=== PATIENT | female | born 1980 | race Caucasian/White ===

== ENCOUNTER → 2020-09-09 10:47 | Outpatient (CLI) | payer OTHER, SELFPAY ==
--- NOTE | ~2020-09-09 | XR_ITS ---
EXAMINATION: XR shoulder RT min 2V DATE: 09/09/2020 11:24 INDICATION: Right arm tingling and numbness. TECHNIQUE: 4 views of right shoulder were obtained. COMPARISON: None. FINDINGS: Bone alignment is normal. No fracture. There is mild osteoarthritis of glenohumeral joint a nd acromioclavicular joint. IMPRESSION: 1. Mild polyarticular osteoarthritis. Reviewed, dictated and finalized at location B. UTILITY OPERATOR
--- NOTE | ~2020-09-09 | XR_ITS ---
EXAMINATION: XR cervical spine 4-5V EXAM DATE: 09/09/2020 11:24 INDICATION: fall 3 weeks ago pain and rt fingers numbness. TECHNIQUE: Cervical spine frontal, lateral, lateral swimmers, and open-mouth odontoid projections. There is no prior study for comparison. FINDINGS: Mild cervical spondylosis. There is no evidence of acute cervical fracture. The odontoid process is intact. Pre-dens space is normal. Prevertebral soft tissue is normal. There are no soft tissue abnormalities identified. The vertebral bodies are aligned. Vertebral body and disc heigh ts are well-maintained. IMPRESSION: No acute cervical findings. Mild cervical spondylosis. Reviewed, dictated and finalized at location A. IT ADMINISTRATION OFFICER
== END ==
PROVIDERS: PCP Physician Assistant; Visit Provider Physician Assistant
DX: M47.892 Other spondylosis, cervical region (principal); M19.011 Primary osteoarthritis, right shoulder
CPT/HCPCS: 72050; 73030

== ENCOUNTER 2022-05-21 19:29 | Emergency (ER) | payer OTHER, SELFPAY ==
--- NOTE | ~2022-05-21 | XR_ITS ---
EXAMINATION: XR knee LT min 4V DATE: 05/21/2022 20:12 INDICATION: Left knee swelling TECHNIQUE: Anteroposterior, 2 oblique and crosstable lateral views of the left knee were obtained COMPARISON: None. FINDINGS: Alignment is normal. No fracture. Joint spaces appear normal on nonweightbearing imaging. Moderate s ized left knee joint effusion without layering lipohemarthrosis. Soft tissues are unremarkable. IMPRESSION: 1. Moderate-sized left knee joint effusion. No osseous abnormality. Reviewed, dictated and finalized at location A.
[2022-05-21 19:38] VITALS: BP 154/87; PULSE 105; RESP 18; TEMP 36.6; O2SAT 100
--- NOTE | 2022-05-21 20:13 | ED.LOWEXIN ---
HPI - Extremity Injury (Lower) General Chief Complaint: Extremity Injury, Lower Stated Complaint: L KNEE SWELLING Time Seen by Provider: 05/21/22 20:06 History of Present Illness HPI Narrative: Patient is a 42-year-old female with history of MCL tear here for evaluation of left-sided knee pain for the past month. Patient states that she was pushed over by her large dog about a month ago, and ended directly on the knee but possibly also had a twisting injury. Since then, she has had intermittent knee soreness and swelling at the area. She has been walking and has range of motion in her knee but she states it is painful. She does have a history of an MCL sprain, for which she saw an orthopedist in [place] but she has since moved. States this feels similar to that type of pain. She has been attempting ibuprofen and Tylenol for pain without relief. She denies any numbness or tingling in her leg, lower leg swelling, systemic symptoms. Related Data Allergies Allergy/AdvReac Type Severity Reaction Status Date / Time gentamicin Allergy Unknown Swelling Verified 05/21/22 19:36 levofloxacin Allergy Unknown Swelling Verified 05/21/22 19:36 sulfamethoxazole Allergy Unknown Swelling Verified 05/21/22 19:36 trimethoprim Allergy Unknown Swelling Verified 05/21/22 19:36 Review of Systems Review of Systems: Gen: Denies fevers or chills Eyes: Denies eye pain or visual change ENT: Denies congestion Respiratory: Denies shortness of breath or cough CV: Denies chest pain or palpitations GI: Denies abdominal pain nausea, emesis or diarrhea denies burning, urgency, frequency or hematuria Musculoskeletal: Reports left knee pain. Neuro: Denies numbness, tingling, weakness or focal weakness Skin: Denies rash Except as documented, all other systems reviewed and negative Exam Narrative: APPEARANCE: Well appearing, no pain in distress, well-nourished. Head: Normocephalic and atraumatic. EYES: PERRLA/EOMI, conjunctivae clear NOSE: No nasal drainage EARS: External ear normal in appearance THROAT: Oropharynx is clear. Mucous membranes are moist. NECK: Supple. No adenopathy, no masses. RESPIRATORY: Airway patent, respirations nonlabored. Clear to auscultation bilaterally, no rales, rhonchi, wheezing. CARDIOVASCULAR: 2+ DP PT pulses bilaterally. Regular rate and rhythm without murmurs, rubs, or gallops. ABDOMINAL: Normoactive bowel sounds. Soft, nontender, nondistended. No rebound tenderness or guarding. MUSCULOSKELETAL: Tender to palpation along left superior joint line of patella. Negative anterior and posterior drawer test. Slight laxity noted with valgus stress of knee. No laxity with varus stress. Mckenzie sign negative. No edema. NEURO: Normal speech. No focal neurologic deficits. SKIN: No erythema of the legs. Skin is warm and dry. No rashes. PSYCHIATRIC: Normal affect/mood. Course Vital Signs Vital signs: Vital Signs Temperature 97.8 F 05/21/22 19:38 Pulse Rate 105 H 05/21/22 19:38 Respiratory Rate 18 05/21/22 19:38 Blood Pressure 154/87 H 05/21/22 19:38 Pulse Oximetry 100 05/21/22 19:38 Oxygen Delivery Room Air 05/21/22 19:38 Temperature 97.8 F 05/21/22 19:38 Pulse Rate 92 05/21/22 21:25 Respiratory Rate 16 05/21/22 21:25 Blood Pressure 154/87 H 05/21/22 19:38 Pulse Oximetry 98 05/21/22 21:25 Oxygen Delivery Room Air 05/21/22 19:38 MDM - Extremity Injury (Lower) MDM Narrative Medical decision making narrative: 42-year-old female here for evaluation of left knee pain after a fall 1 month ago that has been intermittent but progressing in severity. Here she is nontoxic-appearing and her vital signs are normal. She does have a history of an MCL tear and does have some laxity noted with valgus stress. X-ray with small joint effusion; doubt septic arthritis as patient has been weightbearing, has no systemic symptoms. Given traumatic nature of pain and that she is wells low risk, doubt DVT. She wa
[2022-05-21] MEDS: LIDOCAINE 5% PATCH 1 PATCH TRANSDERM (20:56)
[2022-05-21 21:25] VITALS: PULSE 92; RESP 16; O2SAT 98
== END 2022-05-21 21:26 | disposition home or self-care (01) ==
PROVIDERS: Emergency Provider Emergency Medicine; PCP Physician Assistant
DX: M25.562 Pain in left knee (principal)
CPT/HCPCS: 73564; 99283; A9270

== ENCOUNTER 2023-02-16 17:37 | Emergency (ER) | payer OTHER, SELFPAY ==
--- NOTE | ~2023-02-16 | XR_ITS ---
EXAMINATION: XR chest 2V Exam Date/Time: 02/16/2023 18:05 CDT HISTORY: vic ant post rib pain s/p carrying a door Comparison: 05/17/2009. RESULT: Lines, tubes, and devices: None. Lungs and pleura: Clear. Cardiomediastinal silhouette: Stable. Other: No acute osseous or upper abdominal finding. IMPRESSION: No acute cardiopulmonary process. Reviewed, dictated and finalized at location K.
[2023-02-16 17:47] VITALS: BP 145/100; PULSE 94; RESP 16; TEMP 36.9; O2SAT 98
[2023-02-16 17:49] VITALS: BP 145/100; PULSE 94; RESP 16; TEMP 36.9; O2SAT 98
--- NOTE | 2023-02-16 18:03 | ED.BACK ---
HPI - Back Pain/Injury General Chief Complaint: Back Pain/Injury Stated Complaint: Back/Front Pain Time Seen by Provider: 02/16/23 18:03 Source: patient, RN notes reviewed and old records reviewed Mode of arrival: ambulatory Limitations: no limitations History of Present Illness HPI Narrative: 42 year old female who presents to [facility] with complaints of carrying glass shower doors from back of her truck and tripped over landscaping and hit her ribs with doors on Wednesday. Patient reports that she didn't fall or break glass doors but continues to have pain to anterior rib area and left posterior rib area aggravated by certain movement. Patient has no redness or bruising along her rib area, denies any shortness of breath.Patient reports that she has taken Ibuprofen and tramadol for her discomfort. MD elicited complaint: other (contusion to ribs) Onset (ago): day(s) (2) Exacerbating factors: movement Treatments prior to arrival: NSAIDS and other (Tramadol) Work related injury: No Related Data Home Medications Medication Instructions Recorded Confirmed Protonix 02/16/23 02/16/23 albuterol sulfate 90 mcg/actuation inhalation 02/16/23 aerosol inhaler ergocalciferol (vitamin D2) 1,250 02/16/23 mcg (50,000 unit) capsule ondansetron 4 mg disintegrating mg 02/16/23 tablet sumatriptan succinate 25 mg tablet mg PO 02/16/23 tramadol 02/16/23 Allergies Allergy/AdvReac Type Severity Reaction Status Date / Time gentamicin Allergy Unknown Swelling Verified 02/16/23 17:48 levofloxacin Allergy Unknown Swelling Verified 02/16/23 17:48 sulfamethoxazole Allergy Unknown Swelling Verified 02/16/23 17:48 trimethoprim Allergy Unknown Swelling Verified 02/16/23 17:48 Review of Systems Review of Systems: CONSTITUTIONAL: Denies fever, chills, or sweats. EYES: Denies visual changes, redness, or discharge. ENT: Denies rhinorrhea, congestion, sore throat, or otalgia. CARDIOVASCULAR: Reports pain along the anterior ribs bilaterally and the left posterior rib area, no palpitations, or edema.denies any dyspnea RESPIRATORY: Denies cough or dyspnea. GASTROINTESTINAL: Denies abdominal pain, nausea, vomiting, or diarrhea. GENITOURINARY: Denies dysuria or hematuria. SKIN: Denies rash or itching.no bruising or swelling or redness of skin MUSCULOSKELETAL: Denies back pain, joint pain, or myalgia. NEUROLOGIC: Denies headache, numbness, or weakness. PSYCHIATRIC: Denies anxiety or depression. All systems reviewed & are unremarkable except as noted in HPI and below PMFSH Past Medical History Medical History (Updated 02/17/23 @ 00:00 by Delia Trent) Asthma Closed left arm fracture ORIF Migraine Surgical History Surgical History (Updated 02/16/23 @ 18:44 by Cinthia Cespedes NP) H/O tubal ligation S/P endometrial ablation Social History Social History (Updated 02/16/23 @ 18:41 by Cinthia Cespedes NP) Smoking status: Current every day smoker Tobacco type: cigarettes Gender identity (if verbalized by the patient): Female Comments At time of signature, agree with nursing past medical, surgical, social and family history. There is no relevant family history pertinent to the presenting complaint Exam Narrative: GENERAL: Well-appearing, well-nourished, and in no acute distress. HEAD: Normocephalic, atraumatic. EYES: PERRLA and EOMI. ENT: Nares clear, no rhinorrhea or epistaxis. Mucous membranes moist.TM's normal, throat pink with no swelling NECK: Supple.no lymphadenopathy CHEST: Clear to auscultation. No respiratory distress.SAO2 98% on room air, some increased discomfort to anterior ribs and left posterior rib areas with movement.denies any dyspnea HEART: Regular rate and rhythm. No murmur heard. Normal peripheral pulses. ABDOMEN: Soft, nontender, nondistended, normal active bowel sounds. EXTREMITIES: Normal range of motion. No edema. SKIN: Warm, dry, no rash. NEURO: No focal deficits. Alert and oriented x3.
[2023-02-16 19:04] VITALS: BP 133/91
== END 2023-02-16 19:04 | disposition home or self-care (01) ==
PROVIDERS: Emergency Provider Registered Nurse; PCP Physician Assistant
DX: S20.213A Contusion of bilateral front wall of thorax, initial encounter (principal); W22.8XXA Striking against or struck by other objects, initial encounter; J45.909 Unspecified asthma, uncomplicated; F17.210 Nicotine dependence, cigarettes, uncomplicated
CPT/HCPCS: 71046; 99213; G0463

== ENCOUNTER 2023-07-16 09:10 | Emergency (ER) | payer OTHER, SELFPAY ==
--- NOTE | 2023-07-16 09:12 | ED.URI ---
HPI - URI/Sore Throat General Chief Complaint: Upper Respiratory Infection Stated Complaint: sinus infection Time Seen by Provider: 07/16/23 09:11 Source: patient Mode of arrival: ambulatory Limitations: no limitations History of Present Illness HPI Narrative: Rishi is a 3-year-old female patient presenting to the clinic today with complaints a possible sinus infection. She reports symptoms have been going on for 2 days. Has sinus congestion, sinus pain, pressure, bilateral ear pain, cough, and postnasal drip. She denies any sore throat, fever, or chills. Did at home COVID test and it was negative. States that she is pretty sure she has a sinus infection. MD elicited complaint: nasal congestion and sinus pain Related Data Home Medications Medication Instructions Recorded Confirmed albuterol sulfate 90 mcg/actuation 2 inh inhalation DIRECTED 02/16/23 07/16/23 aerosol inhaler ergocalciferol (vitamin D2) 1,250 1,250 mcg PO DIRECTED 02/16/23 07/16/23 mcg (50,000 unit) capsule sumatriptan succinate 25 mg tablet 25 mg PO DIRECTED 02/16/23 07/16/23 epinephrine 0.3 mg/0.3 mL 0.3 ml IM DIRECTED 07/16/23 07/16/23 injection, auto-injector (Auvi-Q) Allergies Allergy/AdvReac Type Severity Reaction Status Date / Time gentamicin Allergy Unknown Swelling Verified 07/16/23 09:22 levofloxacin Allergy Unknown Swelling Verified 07/16/23 09:22 sulfamethoxazole Allergy Unknown Swelling Verified 07/16/23 09:22 trimethoprim Allergy Unknown Swelling Verified 07/16/23 09:22 Review of Systems Review of Systems: Pertinent positives per HPI. Patient denies any fever, chills, rash, visual changes, dizziness, shortness of breath, chest pain, palpitations, nausea, vomiting, diarrhea, constipation, abdominal pain, or any urinary issues. [facility] Past Medical History Medical History Asthma Closed left arm fracture ORIF Migraine Surgical History Surgical History H/O tubal ligation S/P endometrial ablation Social History Social History (Reviewed 07/16/23 @ 09:12 by ROXANA Martin Smoking status: Current every day smoker Tobacco type: cigarettes Gender identity (if verbalized by the patient): Female Comments At the time of my signature, I reviewed and agree with the nursing past medical, surgical, social, and family history. There is no relevant family history pertinent to the patient complaint. Exam Narrative: General: Well-developed, well nourished, in no apparent distress Head: Normocephalic, atraumatic Eyes: Pupils equally round and reactive to light bilaterally, EOM intact, sclera and conjunctive clear, no discharge, lids normal Ears: TMs intact and clear, ear canals clear, no drainage, grossly hearing normal. Nose: Nares patent, clear nasal discharge, moderate inflammation, maxillary sinus tenderness. Mouth: Oral pharynx without lesions or masses, good dentition, MMM. Postnasal drip Neck: Supple, trachea midline, no enlargement of anterior or posterior cervical nodes, no thyroid masses or goiter palpable. Cardio: Regular rate and rhythm, s1 and s2 normal, no murmur appreciated. Resp: Clear to auscultation bilaterally, no rhonchi, rales, wheezing or rubs Course Course Emergency Course: Portions of this record may have been created with voice recognition software. Level of Care: Express Care Visit Vital Signs Vital signs: Vital signs reviewed MDM - URI/Sore Throat MDM Narrative Medical decision making narrative: At the time of visit patient is resting comfortably on exam table. Influenza testing was completed and patient was positive for influenza A. Return precautions were reviewed. Patient is nontoxic appearing. Supportive measures were discussed with the patient she voiced understanding the discharge instructions and agrees to treatment plan. Differ
[2023-07-16 09:21] VITALS: BP 137/86; PULSE 108; RESP 16; TEMP 37.6; O2SAT 96
== END 2023-07-16 09:50 | disposition home or self-care (01) ==
PROVIDERS: Emergency Provider Nurse Practitioner Family; PCP Physician Assistant
DX: J10.1 Influenza due to other identified influenza virus with other respiratory manifestations (principal); J45.909 Unspecified asthma, uncomplicated; F17.210 Nicotine dependence, cigarettes, uncomplicated
CPT/HCPCS: 87804; 99213; G0463

== ENCOUNTER 2023-12-31 15:26 | Emergency (ER) | payer OTHER, SELFPAY ==
--- NOTE | 2023-12-31 15:29 | ED.URI ---
HPI - URI/Sore Throat General Chief Complaint: Upper Respiratory Infection Stated Complaint: throat sore strep exposure Time Seen by Provider: 12/31/23 15:41 Source: patient and RN notes reviewed Mode of arrival: ambulatory Limitations: no limitations History of Present Illness HPI Narrative: 43-year-old female presents with concern for sore throat and swollen tonsils. Reports symptoms started today. She reports her co-worker had strep throat. She denies fever, body aches, chills, sweats, headache, cough, nasal congestion rhinorrhea. She has not taken any [id number] medications for her symptoms MD elicited complaint: sore throat Related Data Home Medications Medication Instructions Recorded Confirmed epinephrine 0.3 mg/0.3 mL 0.3 ml IM DIRECTED 07/16/23 12/31/23 injection, auto-injector (Auvi-Q) albuterol sulfate 90 mcg/actuation 2 puff inhalation QID 12/31/23 12/31/23 aerosol inhaler ergocalciferol (vitamin D2) 1,250 50,000 mcg PO WEEKLY 12/31/23 12/31/23 mcg (50,000 unit) capsule fluconazole 150 mg tablet 150 mg PO DAILY 12/31/23 12/31/23 lorazepam 2 mg tablet 2 mg PO TID 12/31/23 12/31/23 nitrofurantoin 100 mg PO DAILY 12/31/23 12/31/23 monohydrate/macrocrystals 100 mg capsule sumatriptan succinate 25 mg tablet 25 mg PO DAILY 12/31/23 12/31/23 tramadol 50 mg tablet 50 mg PO DAILY 12/31/23 12/31/23 Allergies Allergy/AdvReac Type Severity Reaction Status Date / Time gentamicin Allergy Unknown Swelling Verified 12/31/23 15:28 levofloxacin Allergy Unknown Swelling Verified 12/31/23 15:28 sulfamethoxazole Allergy Unknown Swelling Verified 12/31/23 15:28 trimethoprim Allergy Unknown Swelling Verified 12/31/23 15:28 Review of Systems Review of Systems: CONSTITUTIONAL: Denies malaise, chills, sweats, or fever. EYES: Denies visual changes, redness, or discharge. ENT: Denies rhinorrhea, congestion, sinus pain, otalgia. Reports sore throat. CARDIOVASCULAR: Denies chest pain, palpitations, or edema. RESPIRATORY: Denies cough. Denies dyspnea. GASTROINTESTINAL: Denies abdominal pain, nausea, vomiting, diarrhea SKIN: Denies rash or itching. MUSCULOSKELETAL: Denies myalgia. NEUROLOGIC: Denies headache. All systems reviewed & are unremarkable except as noted in HPI and below PMFSH Past Medical History Medical History Asthma Closed left arm fracture ORIF Migraine Surgical History Surgical History H/O tubal ligation S/P endometrial ablation Social History Social History Smoking status: Current every day smoker Tobacco type: cigarettes Gender identity (if verbalized by the patient): Female Comments At time of signature, agree with nursing past medical, surgical, social and family history. There is no relevant family history pertinent to the presenting complaint Exam Narrative: GENERAL: Well-appearing, well-nourished, and in no acute distress. HEAD: Normocephalic EYES: PERRLA, conjunctivae clear ENT: Nares clear, turbinates edematous and erythematous, clear discharge. Mucous membranes moist. TM pearly kumar with sharp light reflex bilaterally; no tragal tenderness. Oropharynx not erythematous without lesions. Left-sided tonsil stones noted. Tonsils not enlarged and without exudate, no drooling, no hoarseness, no trismus, uvula midline. NECK: Supple. No lymphadenopathy CHEST: Clear to auscultation, breath sounds equal. No wheezing, rhonchi, rales, or stridor. No respiratory distress, speaks in full sentences. HEART: Regular rate and rhythm. No murmur heard. SKIN: Warm, dry, no rash. NEURO: Alert and oriented x3. PSYCH: Normal mood and affect Course Course Emergency Course: Patient is aware of diagnosis, understands and agrees to treatment plan. Anticipatory guidance given. Patient agrees to follow-up
[2023-12-31 15:39] VITALS: BP 153/98; PULSE 86; RESP 16; TEMP 36.8; O2SAT 98
== END 2023-12-31 16:00 | disposition home or self-care (01) ==
PROVIDERS: Emergency Provider Nurse Practitioner; PCP Physician Assistant
DX: J02.9 Acute pharyngitis, unspecified (principal); F17.210 Nicotine dependence, cigarettes, uncomplicated; J45.909 Unspecified asthma, uncomplicated
CPT/HCPCS: 87081; 87880; 99213; G0463

== ENCOUNTER 2025-03-23 09:42 | Outpatient (CLI) | payer OTHER, SELFPAY ==
--- NOTE | ~2025-03-23 | CT_ITS ---
CLINICAL INDICATION: Right lower quadrant pain COMPARISON: None. TECHNIQUE: Multiple contiguous axial images of the abdomen and pelvis were performed following the ad ministration of with 100 mL Omnipaque-350 intravenous contrast The dose-length product (DLP) was 1035.84 mGy-cm. Automated exposure control and iterative reconstruction technique were employed. FINDINGS/OBSERVATIONS: Visualized lower thorax: The bilateral lung bases are clear. The heart is of normal size, without pericardial effusion. Small hiatal hernia is present. Liver: The liver demonstrates homogeneous enhancement and is enlarged measuring 20 cm in longitudinal dimens ion. Gallbladder and biliary system: The gallbladder is only minimally distended, and otherwise unremarkable. Pancreas: The pancreas enhances homogeneously without ductal dilatation. Spleen: The spleen enhances homogeneously and is not enlarged. Kidneys: Irregular contrast-enhancing heterogeneous mass along the medial margin of the upper pole of the right kidney measuring 22 x 21 x 22 mm, for which a malignancy is suspected. Trace surrounding inflammatory change in the perirenal fat. Follow-up examination (CT or MRI) with renal mass protocol is recommended for further evaluation. An 11 mm well-circumscribed focus of decreased attenuation is also noted within the upper pole of the right kidney, too small to characterize on the current examination. The remainder of the bilateral kidneys otherwise enhance symmetrically without hydronephrosis or martínez l calculi. Adrenal glands: Unremarkable. Gastrointestinal tract: Rectosigmoid diverticulosis without surrounding inflammatory change. Fecal stasis within the colon. Appendix: The air-filled appendix is of normal caliber (axial series, images 107-120). Vasculature: Unremarkable. Lymph nodes: No pathologically enlarged or morphologically suspicious lymph nodes within the retroperitoneum or at the root of the mesentery. Pelvic structures: The bladder is only minimally distended, and otherwise unremarkable. Sterilization devices detected bilaterally. Involuting 6 mm cyst within the left ovary. Trace free fluid within the pelvis, likely physiologic. Body wall and musculoskeletal: Small fat-containing umbilical hernia. No significant degenerative disease within the lower thoracic or lumbosacral spine. IMPRESSION: 2 cm contrast enhancing mass along the medial margin of the upper pole of the right kidney for which a malignancy is suspected. Repeat examination (CT or MRI) with renal mass protocol is recommended. Hepatomegaly. Normal appendix. Reviewed, dictated and finalized at location A. IMPRESSION: 2 cm contrast enhancing mass along the medial margin of the upper pole of the r ight kidney for which a malignancy is suspected. Repeat examination (CT or MRI) with renal mass protocol is recommended. Hepatomegaly. Normal appendix.
--- OUTSIDE RECORDS SUMMARY | 2025-03-23 09:47 | XMS_ITS | Referral Summary ---
Author Organization [address] Address [address] [place] [id number] Care Team Providers Care Access Control Specialist Name Role Phone Sol Moore Primary Care Provider [phone] Encounters Date Type Department Care Team Description 03/23/[address] [place] [phone] Sol Moore PA Referral Request 03/23/2025 7:30 AM CDT Office Visit [address] [place] [phone] Sol Moore PA BMI 35.0-35.9,adult (Primary Dx); Morbid obesity (HCC); Nausea; Low vitamin B12 level; Immunity status testing; RLQ abdominal pain 03/17/2025 Results Follow-Up [address] [place] [phone] Sol Moore PA CBC with auto differential, Comprehensive metabolic panel, Hemoglobin A1c, Additional followed-up results: 4 12/27/2024 Results Follow-Up [facility] [address] [place] [address] Eboni Lopez NP MRI Breast Bilateral W WO Contrast 12/27/2024 9:30 AM CDT - 12/27/2024 11:59 PM CDT Hospital Encounter [facility] [address] [place] [phone] At high risk for breast cancer Discharge Disposition: Discharge to home or self care 12/26/2024 7:58 AM CDT Anesthesia Event [facility] [address] [place] [id number] Rita Vance MD 12/26/2024 8:00 AM CDT - 12/26/2024 8:30 AM CDT Surgery [facility] [address] [place] [phone] Sylvie Harris MD COLON REMOVAL SNARE 12/26/2024 6:47 AM CDT - 12/26/2024 9:02 AM CDT Hospital Encounter [facility] [address] [place] [phone] Sylvie Harris MD Screen for colon cancer Discharge Disposition: Discharge to home or self care from Last 3 Months Allergies Active Allergy Reactions Criticality Noted Date Comments Bee Venom Protein (Honey Bee) Unknown,Rash Medium 03/2015 Rash Gentamicin Sulfate Unknown 02/02/2019 Levofloxacin Unknown,Rash Medium 11/24/2012 rash Mushroom Hives,Itching,Rash,S wel ling Medium 06/17/2021 Sulfamethoxazole Unknown 02/02/2019 Trimethoprim Unknown 02/02/2019 Medications buPROPion XL (WELLBUTRIN XL) 300 mg 24 hr tablet Take 1 tablet (300 mg total) by mouth every morning 90 tablet 2 022 Active cholecalciferol, vitamin D3, 5,000 unit/mL drops Take by mouth Ac tive cyanocobalamin (Vitamin B-12) 100 mcg tabletIndications :Prevention of Vitamin B12 Deficiency Take 1 tablet (100 mcg total) by mouth daily Active ergocalciferol (VITAMIN D) 50,000 unit capsule Take 1 capsule (50,000 Units total) by mouth once a week 12 capsule 4 023 Active Auvi-Q 0.3 mg/0.3 mL auto-injection syringeIndication s:Anaphylaxis Inject 0.3 mL (0.3 mg total) into the muscle as instructed as needed for anaphylaxis 2 each 4 023 Active SUMAtriptan (IMITREX) 25 mg tablet TAKE 1 TABLET BY MOUTH ONCE NEEDED FOR MIGRAINE-MAY REPEAT IN 2 HOURS IF NO RELIEF.MAX 2/24HOURS. 9 tablet [address] (PROTONIX) 40 mg EC tabletIndications :Gastroesophageal reflux disease without esophagitis Take 1 tablet (40 mg total) by mouth daily 90 tablet 2 025 Active LORazepam (ATIVAN) 2 mg tabletIndications :Anxiety about health Take 1 tablet by mouth at 7 am the day of your MRI. May take another tablet 30 minutes prior to MRI if needed. 2 tablet 025 Active traMADoL (ULTRAM) 50 mg tabletIndications :Neck pain Take 1 tablet (50 mg total) by mouth every 8 (eight) hours as needed for pain (headache) 20 tablet 025 Active albuterol HFA (PROVENTIL HFA,VENTOLIN HFA,PROAIR HFA) 90 mcg/actuation inhaler INHALE 2 PUFFS BY MOUTH EVERY 6 HOURS NEEDED FOR WHEEZING 25.5 each 2 025 Active ondansetron ODT (ZOFRAN-ODT) 4 mg disintegrating tablet TAKE 1 TABLET BY MOUTH EVERY 8 HOURS NEEDED FOR NAUSEA AND VOMITING 30 tablet 025 Active albuterol HFA (PROVENTIL HFA,VENTOLIN HFA,PROAIR HFA) 90 mcg/actuation inhaler INHALE 2 PUFFS BY MOUTH EVERY 6 HOURS NEEDED FOR WHEEZING 25.5 each 2 024 2024 Discontinued ondansetron ODT (ZOFRAN-ODT) 4 mg disintegrating tablet Take 1 tablet (4 mg total) by mouth every 8 (eight) hours as needed for nausea or vomiting 30 tablet 025 2024 Discontinued Active Problems Problem Noted Date Diagnosed Date BMI 35.0-35.9,adult 11/23/2024 Assessment & Plan (03/23/2025 7:39 AM CDT): Discussed the patient's BMI. The BMI is above average. BMI management plan is completed. BMI Follow-up includes: nutrition counseling, exercise counseling and education provided. Assessment & Plan (11/23/2024 7:19 AM CDT): Discussed the patient's BMI. The BMI is above average. BMI management plan is completed. BMI Follow-up includes: nutrition counseling, exercise counseling and education provided. Acute non-recurrent pansinusitis 10/31/2024 Epistaxis 10/31/2024 Abnormal finding on breast imaging 05/29/2024 At high risk for breast cancer 05/29/2024 Assessment & Plan (11/23/2024 2:19 PM CDT): - Follow up with Dr. Carnes, alternating MRI/mammogram every 6 months - MRI on 12/27/2024, mammogram 06/08/2025 - Ativan for anxiety related to upcoming MRI Phlegm in throat 04/04/2024 Assessment & Plan (07/22/2024 3:12 PM DYNAMITE PACKING MACHINE OPERATOR): We reviewed her sinus CT scan which was essentially negative. I do not feel that sinusitis is causing her symptoms. We talked about that and she understood. She is going to decrease her PPIs to once a day. She will follow up with me as needed. Assessment & Plan (06/08/2024 4:46 PM CDT): I think this is also due to her reflux disease and it may improve with more aggressive PPIs therapy. Her hoarseness has already improved. I am also going to have her get a sinus CT scan to rule out sinusitis. I am treating her presumptively for sinusitis as well. She is agreeable with all of this also. Assessment & Plan (04/04/2024 8:28 PM CDT): I reassured her that her throat looks okay. I do not feel that the tonsils are causing all of the phlegm or drainage in her throat. She does have problems with allergies and reflux and I told her that both of these can cause a lot of throat symptoms. We talked about treating more aggressively with PPIs and decided against that given that her symptoms were tolerable. She will follow up with me if her symptoms worsen. She had no questions. Dysuria 03/05/2024 Assessment & Plan (03/05/2024 9:35 PM CDT): This is a significant, separately identifiable problem that was evaluated and managed on the same day as the wellness exam Patient with dysuria symptoms. Dip appears consistent with a UTI. Will start Macrobid 500 mg 1 tablet b.i.d. for 5 days. Await sensitivity from culture to confirm proper treatment. Reviewed wiping Cervical cancer screening 03/05/2024 Assessment & Plan (03/05/2024 9:34 PM CDT): Pap smear obtained. Follow-up pending results. Reviewed Pap smear recommendations for screening. Encounter for routine gyneco logical examination with Papanicolaou smear of cervix 03/05/2024 Assessment & Plan (03/05/2024 9:34 PM CDT): Encouraged healthy lifestyle, good nutrition and exercise. Encouraged Calcium and Vitamin D and weight bearing exercise for bone health. Reviewed immunizations Reviewed age appropirate screenings. Morbid obesity 02/22/2024 Assessment & Plan (03/23/2025 7:39 AM CDT): Discussed the patient's BMI. The BMI is above average. BMI management plan is completed. BMI Follow-up includes: nutrition counseling, exercise counseling and education provided. Assessment & Plan (11/23/2024 7:19 AM CDT): Discussed the patient's BMI. The BMI is above average. BMI management plan is completed. BMI Follow-up includes: nutrition counseling, exercise counseling and education provided. Assessment & Plan (02/22/2024 7:32 AM CDT): Discussed the patient's BMI. The BMI is above average. BMI management plan is completed. BMI Follow-up includes: nutrition counseling, exercise counseling and education provided. Colon cancer screening 11/21/2023 Assessment & Plan (11/23/2024 1:31 PM CDT): - Colonoscopy is scheduled for 12/26/2024 Assessment & Plan (03/05/2024 9:33 PM CDT): Colonoscopy is scheduled for the fall with Dr. Harris. Await recommendations Assessment & Plan (11/21/2023 11:54 PM CDT): Patient due for colon cancer screening. Refer to Dr. Steven Stewart 07/30/2023 Assessment & Plan (07/30/2023 11:56 AM DYNAMITE PACKING MACHINE OPERATOR): Patient notes pain in the right breast. She recently had mammogram with ultrasound in April it showed calcifications that were probably benign and recommended to repeat in 6 months. She does have some caffeine use but in general it is pretty minimal. Multiple members of her family have had breast cancer. With the persistent symptoms will encourage her to start vitamin-E and or evening [place] oil for the pain. Refer to breast specialist for further evaluation. Vitamin D deficiency 12/06/2022 Assessment & Plan (11/23/2024 1:32 PM CDT): - Take your vitamin D supplement Assessment & Plan (11/21/2023 11:53 PM CDT): Supplement Assessment & Plan (12/06/2022 4:44 PM CDT): Supplement Low serum vitamin B12 12/06/2022 Assessment & Plan (11/23/2024 1:32 PM CDT): - Take your B12 supplement Assessment & Plan (11/21/2023 11:53 PM CDT): Supplement Assessment & Plan (12/06/2022 4:44 PM CDT): Supplement Acute pain of left knee 06/01/2022 Positive Neela Test 06/01/2022 Diabetes mellitus screening 11/12/2021 Assessment & Plan (11/23/2024 1:30 PM CDT): - We will measure your hemoglobin A1c. This measures your body's use of glucose and can be used to diagnose diabetes and pre-diabetes. Assessment & Plan (11/12/2021 8:43 AM CDT): Check labs Hair loss 11/12/2021 Assessment & Plan (11/12/2021 8:43 AM CDT): Check labs including B12 vitamin-D thyroid. Encouraged to start a vitamin will continue to monitor pending labs Lipid screening 11/12/2021 Assessment & Plan (11/23/2024 1:27 PM CDT): - Keeping your cholesterol low can help prevent cardiovascular disease - Get plenty of exercise and follow heart-healthy diet Assessment & Plan (11/12/2021 8:43 AM CDT): Check labs Fatigue 11/12/2021 Assessment & Plan (11/12/2021 8:43 AM CDT): Probably multifactorial. Check labs and followup to re-evaluate Hoarseness 11/09/2021 Assessment & Plan (07/22/2024 3:11 PM DYNAMITE PACKING MACHINE OPERATOR): Significantly improved. No for further intervention. Assessment & Plan (06/08/2024 4:45 PM CDT): I reassured her that her vocal cords look okay. There are some findings that are consistent with reflux but no worrisome masses or lesions. We will see how aggressive PPIs management does. Assessment & Plan (11/12/2021 8:37 AM CDT): Improving. Seems to be related to PND. Continue seasonal allergy sxs. Assessment & Plan (11/09/2021 2:42 PM CDT): Start antibiotic,steroid, antihistamine (Claritin OR Zyrtec), Mucinex 12hour and Steroid nasal spray (Flonase). Push fluids. Rest. Supportive care. If sxs worsen or don\'t improve, pt is to followup in the office. History of COVID-19 06/17/2021 Assessment & Plan (06/17/2021 9:51 AM CDT): PatienT COVID positive. Self isolate for 10 days from the onset of sxs. Discussed monoclonal antibody treatments. Reviewed these are under FDA emergency use authorization. Reviewed risks benefits and the infusion process. Patient is o lder, obese and is a smoker so these risk factors help her qualify. She is concerned about how history of allergies. 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 Encouraged her to bring it with her to the infusion. [facility] Treat sxs with Tylenol, Cough/cold medication otc and add VitD 5,000IU daily and Zinc 50mg daily. Monitor sxs and call or go to the ER if has any of the following: --trouble breathing --persistent pain or pressure in the chest --new confusion --inability to wake or stay awake -- bluish lips or face If patient has been in close contact with anyone, they should be notified and instructed to quarantine per CDC guidelines for 14 days after last exposure to the positive COVID patient and monitor closely for symptoms of COVID. If they appear they should be tested. Close contact includes: --You were within 6 feet of someone who has COVID-19 for a total of 15 minutes or more --You provided care at home to someone who is sick with COVID-19 --You had direct physical contact with the person (hugged or kissed them) --You shared eating or drinking utensils --They sneezed, coughed, or somehow got respiratory droplets on you Additional Steps to avoid exposure/spread include: Avoid crowded places where close contact with others may occur, such as shopping centers, movie theaters, dormitories, or stadiums. Avoid transit where close contact with others may occur, such as planes, trains, and buses. Maintain a distance of approximately 6 feet from other people whenever possible (spacing out if you are in a line, leaving 2 seats in between others at a waiting room when possible). Wash your hands with soap and water often. If needed, use a hand filter changer that contains at least 60% alcohol. Clean and disinfect frequently touched surfaces such as tables, doorknobs, countertops, etc daily. Avoid touching your eyes, nose, and mouth when possible. -- Patient is concerned about getting the vaccine. She has to complete the mandate vaccine for her employer before the end of the year. Reviewed with her the recommendations by the CDC is if she receives monoclonal antibody she will need to wait 90 days to get the vaccine series. She would also like to be referred to an weatherization technician to discuss her allergies and the vaccine after she clears quarantine time. She is okay with the weatherization technician in [place]. Will make that referral upon follow-up. Neck pain 09/29/2020 Assessment & Plan (09/29/2020 8:18 PM DYNAMITE PACKING MACHINE OPERATOR): Encouraged NSAIDS (if able to safely tolerate) or Tylenol. Topical preparations like Lidocaine patches, Biofreeze, ICYHOT etc as needed. Mobic to pharm Heat, stretching Avoid long periods of sitting/laying. Encouraged PT. Check xrays. Followup if has any problems controlling bowels or bladder or if sxs worsen. Acute pain of right shoulder 09/29/2020 Seborrheic keratosis 04/11/2020 Assessment & Plan (04/11/2020 1:38 PM CDT): Benign lesions. Suture removed. Continue to keep area clean. Call for any problems. Annual physical exam 02/26/2020 Assessment & Plan (11/23/2024 2:33 PM CDT): - Continue your Wellbutrin XL 300 - Discussed importance of regular health screenings - Vaccinations are up to date - Plan for follow-up in 4 months Assessment & Plan (11/21/2023 11:53 PM CDT): Encouraged healthy lifestyle, good nutrition and exercise. Encouraged Calcium and Vitamin D and weight bearing exercise for bone health. Reviewed immunizations Reviewed age appropirate screenings Assessment & Plan (12/06/2022 4:44 PM CDT): Encouraged healthy lifestyle, good nutrition and exercise. Encouraged Calcium and Vitamin D and weight bearing exercise for bone health. Reviewed immunizations Reviewed age appropirate screenings. Assessment & Plan (11/12/2021 8:37 AM CDT): Encouraged healthy lifestyle, good nutrition and exercise. Encouraged Calcium and Vitamin D and weight bearing exercise for bone health. Reviewed immunizations Reviewed age appropirate screenings. Assessment & Plan (03/03/2020 11:03 PM CDT): Encouraged healthy lifestyle, good nutrition and exercise. Encouraged Calcium and Vitamin D and weight bearing exercise for bone health. Reviewed immunizations Reviewed age appropirate screenings. Breast cancer screening by mammogram 08/21/2019 Assessment & Plan (12/06/2022 4:43 PM CDT): Mammogram order provided Assessment & Plan (11/12/2021 8:35 AM CDT): Mammogram order provided Assessment & Plan (03/03/2020 11:03 PM CDT): Mammogram order provided Assessment & Plan (08/21/2019 10:37 PM DYNAMITE PACKING MACHINE OPERATOR): Mammogram order provided Migraine without aura and wi thout status migrainosus, not intractable 04/09/2019 Assessment & Plan (11/21/2023 11:52 PM CDT): Continue Maxalt and Zofran p.r.n. for nausea Assessment & Plan (12/06/2022 4:42 PM CDT): Stable with Zofran and Maxalt p.r.n. Assessment & Plan (11/12/2021 8:33 AM CDT): Migraines have been stable. Continue Imitrex p.r.n. and Zofran p.r.n.. Assessment & Plan (03/03/2020 11:01 PM CDT): stable Assessment & Plan (08/21/2019 10:36 PM DYNAMITE PACKING MACHINE OPERATOR): Continue to monitor. Start taking all meds, including Wellbutrin, daily as prescribed--will monitor to see if BENNETT resolve. Cigarette smoker 04/09/2019 Assessment & Plan (11/21/2023 11:53 PM CDT): Encouraged smoking cessation. Discussed 3 minutes. Reviewed options for assistance with cessation. Reviewed retirement sequela associated with smoking. Pt declines assistance at this time but may contact the office at anytime for further help as they desire. Assessment & Plan (11/12/2021 8:34 AM CDT): Encouraged smoking cessation. Discussed 3 minutes. Reviewed options for assistance with cessation. Reviewed retirement sequela associated with smoking. Pt declines assistance at this time but may contact the office at anytime for further help as they desire. Assessment & Plan (03/03/2020 11:01 PM CDT): Encouraged smoking cessation. Discussed 3 minutes. Reviewed options for assistance with cessation. Reviewed exterminator helper sequela associated with smoking. Pt declines assistance at this time but may contact the office at anytime for further help as they desire. Assessment & Plan (08/21/2019 10:37 PM DYNAMITE PACKING MACHINE OPERATOR): Encouraged smoking cessation. Discussed 3 minutes. Reviewed options for assistance with cessation. Reviewed exterminator helper sequela associated with smoking. Pt declines assistance at this time but may contact the office at anytime for further help as they desire. Stress 04/09/2019 Assessment & Plan (12/06/2022 4:43 PM CDT): Increased stress caring for her father. She also has increased stress at work due to some lay offs. Will continue with the Wellbutrin XL 300. Patient states she is managing Assessment & Plan (11/12/2021 8:34 AM CDT): Stable with the Wellbutrin. Refills sent to pharmacy Assessment & Plan (03/03/2020 11:02 PM CDT): Continue wellbutrin Assessment & Plan (08/21/2019 10:37 PM DYNAMITE PACKING MACHINE OPERATOR): Take the Wellbutrin daily. Continue to monitor Bee sting allergy 04/09/2019 Assessment & Plan (12/06/2022 4:43 PM CDT): Patient requests refill of epinephrine for her bee sting allergy.. She prefers the brand havoc you because she goes hiking and it is more stable and heat as well as more convenient to sit back pocket as opposed to the pen. Assessment & Plan (11/12/2021 8:34 AM CDT): Patient needs refills of the EpiPen/have a Q as hers is in her purse. She prefers the avg acute product because it is easier to fit her pockets that she has it with her at all times, it has less sensitivity to the heat and is easier to use. Assessment & Plan (03/03/2020 11:02 PM CDT): Does best with Auvi-Q. Insurance covered it last year with [place]. Is important for her to be able to carry it in her pocket, outside in the heat due to bees being her allergy Gastroesophageal reflux disease without esophagi tis 04/09/2019 Assessment & Plan (11/23/2024 10:31 AM CDT): - Continue pantoprazole DR 40 - Start food journal for triggers of nausea Assessment & Plan (11/21/2023 11:52 PM CDT): Continue PPI Assessment & Plan (11/12/2021 8:35 AM CDT): Continue PPI Assessment & Plan (03/03/2020 11:01 PM CDT): Stable with ppi Assessment & Plan (08/21/2019 10:36 PM DYNAMITE PACKING MACHINE OPERATOR): Stable with the PPI Other insect allergy status 03/14/2018 Assessment & Plan (11/12/2021 8:34 AM CDT): Continue with Mucinex antihistamine and Flonase to manage her allergies. Has a ProAir available for a little bit of a reactive airway. Assessment & Plan (03/03/2020 11:03 PM CDT): otc prn Assessment & Plan (08/21/2019 10:37 PM DYNAMITE PACKING MACHINE OPERATOR): Continue otc meds Intractable migraine with aura without status mi grainosus 02/02/2017 Assessment & Plan (11/23/2024 10:31 AM CDT): - Continue sumatriptan 25 mg, ondansetron 4 mg and tramadol 50 mg - Keep food journal to identify triggers for migraines COPD (chronic obstructive pulmonary disease) Chronic rhinosinusitis 10/05/2016 Laryngopharyngeal reflux (LPR) 10/05/2016 Assessment & Plan (07/22/2024 3:10 PM DYNAMITE PACKING MACHINE OPERATOR): She has had significant improvement since we increased her PPIs to twice a day. I think at this point she can probably go down to her original once a day dosage and we talked about that. She can take it twice a day as needed also. She understands. She has no questions. Assessment & Plan (06/08/2024 4:44 PM CDT): We discussed laryngopharyngeal reflux disease. It could be causing these symptoms. It can be improved through dietary management and we talked about various dietary changes to consider. Also discussed aggressive treatment through twice a day proton pump inhibitors. I also provided some literature regarding this type of reflux and this included instructions on dietary management. She has already started to take her pantoprazole twice a day and I recommended that she continue with that. I would like to see her again in about 6 weeks. She understands and has no questions. Chronic laryngitis 09/30/2016 Resolved Problems Problem Noted Date Diagnosed Date Resolved Date Tonsil stone 04/04/2024 11/23/2024 Assessment & Plan (04/04/2024 8:27 PM CDT): I talked with her quite a bit about her tonsil stones. I indicated that there is really not a whole lot that can be done other than a tonsillectomy to get rid of this problem. I recommended it only if she is seriously bothered by this. I discussed the risks of tonsillectomy and adenoidectomy with the patient. There is risk of bleeding which can occur in approximately 2-3% of patients during the 1st 2 weeks of recovery. Some risk of permanent loss of taste sensation. Risk of anesthesia and airway complications also. She is seriously considering a tonsillectomy. She will think it over and call if she has any questions or if she wants to schedule this. BMI 34.0-34.9,adult 02/22/2024 11/24/19 25 Assessment & Plan (02/22/2024 7:31 AM CDT): Discussed the patient's BMI. The BMI is above average. BMI management plan is completed. BMI Follow-up includes: nutrition counseling, exercise counseling and education provided. BMI 35.0-35.9,adult 11/16/2022 02/22/20 24 Assessment & Plan (11/21/2023 11:53 PM CDT): Discussed the patient's BMI. The BMI is above average. BMI management plan is completed. BMI Follow-up includes: nutrition counseling, exercise counseling and education provided. Assessment & Plan (07/26/2023 2:32 PM DYNAMITE PACKING MACHINE OPERATOR): Discussed the patient's BMI. The BMI is above average. BMI management plan is completed. BMI Follow-up includes: nutrition counseling, exercise counseling and education provided. Assessment & Plan (11/16/2022 7:20 AM CDT): BMI Follow-up includes: Discussed diet and exercising counseling. Morbid obesity 11/12/2021 11/23/2024 Assessment & Plan (11/21/2023 11:53 PM CDT): Discussed the patient's BMI. The BMI is above average. BMI management plan is completed. BMI Follow-up includes: nutrition counseling, exercise counseling and education provided. Patient has an obesity-related condition (not limited to: hypertension, obstructive sleep apnea, osteoarthritis, hyperlipidemia, diabetes, etc.). Therefore, morbid obesity may be documented for patients with a BMI between 35.00-39.99. Assessment & Plan (07/30/2023 11:52 AM DYNAMITE PACKING MACHINE OPERATOR): Discussed the patient's BMI. The BMI is above average. BMI management plan is completed. BMI Follow-up includes: nutrition counseling, exercise counseling and education provided. Patient has an obesity-related condition (not limited to: hypertension, obstructive sleep apnea, osteoarthritis, hyperlipidemia, diabetes, etc.). Therefore, morbid obesity may be documented for patients with a BMI between 35.00-39.99. Assessment & Plan (12/06/2022 4:44 PM CDT): Discussed the patient's BMI. The BMI is above average. BMI management plan is completed. BMI Follow-up includes: nutrition counseling, exercise counseling and education provided. Patient has an obesity-related condition (not limited to: hypertension, obstructive sleep apnea, osteoarthritis, hyperlipidemia, diabetes, etc.). Therefore, morbid obesity may be documented for patients with a BMI between 35.00-39.99. Assessment & Plan (11/12/2021 8:07 AM CDT): Obesity is unchanged. Discussed the patient's BMI. The BMI is above average. BMI management plan is completed. BMI Follow-up includes: nutrition counseling, exercise counseling and education provided. BMI 34.0-34.9,adult 11/12/2021 11/17/19 Assessment & Plan (11/12/2021 8:07 AM CDT): Obesity is unchanged. Discussed the patient's BMI. The BMI is above average. BMI management plan is completed. BMI Follow-up includes: nutrition counseling, exercise counseling and education provided. Visit for suture removal 04/11/2020 Assessment & Plan (04/11/2020 1:39 PM CDT): Suture removed. Reviewed pathology with patient. BMI 35.0-35.9,adult 04/02/2020 11/13/19 22 Assessment & Plan (04/02/2020 1:16 PM CDT): Obesity is unchanged. Discussed the patient's BMI. The BMI is above average. BMI management plan is completed. BMI Follow-up includes: nutrition counseling, exercise counseling and education provided. Changing skin lesion 03/03/2020 022 Assessment & Plan (04/06/2020 11:37 PM CDT): Reviewed procedure with patient including process, possible scarring, risk for bleeding and or infection and that the procedure will remove the lesion but if pathology reveals a cancer, a larger more aggressive excision may be needed for definitive treatment. All questions were answered and pt desires to procede. Area was cleansed with Betadine x 3. Area infiltrated with Xylocane with Epi. Under sterile conditions the 6mm lesion was lifted and excised with a #11blade. Hemostasis obtained with silver nitrate. Bandaid applied. Pt tolerated well. Reviewed s/s infection and call immediately for any problems. Await pathology. Patient presents punch biopsy. She has a suspicious lesion that is changing and recommended further evaluation for this skin lesion. Reviewed the procedure with her. Reviewed that it is a procedure that will provide information regarding the lesion but it may not be definitive, further investigation may be required not limited to incision and or Mohs if abnormal cells are determined to be present. Reviewed risks benefits alternatives not limited to infection, bleeding and scarring. All questions were answered and patient desires to proceed. Written consent was obtained from the patient and is available in the chart. Area was cleansed with Betadine x3. Area infiltrated with xylocaine with epinephrine until good anesthesia was obtained. Under sterile conditions have 5mm punch was used per protocol and a nice skin plug was removed from the area. It will be sent for pathology. One stitch for 4-0Vicryl was placed with good approximation. Blood loss was minimal suturing obtained good control. Area was covered with a Band-Aid. She is return to in 1 week for suture removal. Reviewed with signs and symptoms of infection she is to follow up immediately if any of these present. May use ibuprofen or Tylenol as needed for discomfort. Assessment & Plan (03/03/2020 11:06 PM CDT): Recommend punch bx. 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 Reviewed risks/ benefits. Patient refuses and accepts risks. Immunizations Immunization Administration Dates Next Due Influenza, Unspecified 08/23/2024(Deferr ed: Patient Refused),11/16/2022(Deferred: Patient Refused),08/23/2021(Deferred: Patient Refused),05/23/2020,05/23/2020(Deferred: Patient Refused),08/21/2019(Deferred: Patient Refused),05/23/2019,07/23/2018(Deferred: Patient Refused) Tdap 09/01/2018 Social History Tobacco Use Types Packs/Day Years Used Date Smoking Tobacco: Every Day Cigarettes 0.3 25 Smokeless Tobacco: Never Tobacco Cessation:Ready to Q uit: Not Asked; Counseling Given: Not Answered Alcohol Use Standard Drinks/Week Comments Yes 0 (1 standard drink = 0.6 oz pur e alcohol) AUDIT-C Answer Date Recorded Q1: How often do you have a drink containing alcohol? Never 03/23/2025 Q2: How many drinks containi ng alcohol do you have on a typical day when you are drinking? Patient does not drink Q3: How often do you have si x or more drinks on one occasion? Never 03/23/2025 PHQ-2 Answer Date Recorded PHQ-2 Total Score (If total score is 3 or more points, staff should administer the PHQ-9) 0 03/23/2025 Personal Safety Answer Date Recorded Have you ever been in or are you currently in a harmful physical or emotional relationship or is someone making you feel afraid or unsafe? 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 on file Not on file Not on file Last Filed Vital Signs Vital Sign Reading Time Taken Comments Blood Pressure 142/86 03/23/2025 7:35 AM CDT Pulse 83 03/23/2025 7:35 AM CDT Temperature 36.8 C (98.2 F) 03/23/2025 7:35 AM CDT Respiratory Rate 17 12/26/2024 8:50 AM CDT Oxygen Saturation 97% 03/23/2025 7:35 AM CDT Inhaled Oxygen Concentration - - Weight 99.8 kg (220 lb) 03/23/2025 7:35 AM CDT Height 167.6 cm (5' 6) 11/23/2024 7:12 AM CDT Body Mass Index 35.51 11/23/2024 7:12 AM CDT Plan of Treatment Not on file Medical Devices Implanted Type Area Group Home Paraprofessional Device Identifier Shelf Expiration Date Model / Serial / Lot Plate And Screws Left: Arm Silent Edge Mri Guided Rigid Deployment Device Cork Marker Breast [employer] Td 13-Mr - [id number] Implanted:Qty: 1 on 05/31/2024 at [facility] [email or web address] TD 13-MR / / Procedures Procedure Name Priority Date/Time Associated Diagnosis Comments VITAMIN B12 Routine 03/16/2025 12:05 PM CDT Low serum vitamin B12 VITAMIN D 25 HYDROXY Routine 03/16/2025 12:05 PM CDT Vitamin D deficiency TSH Routine 03/16/2025 12:05 PM CDT Fatigue, unspecified type LIPID PANEL Routine 03/16/2025 12:05 PM CDT Lipid screening HEMOGLOBIN A1C Routine 03/16/2025 12:05 PM CDT Diabetes mellitus screening COMPREHENSIVE METABOLIC PANEL Routine 03/16/2025 12:05 PM CDT Lipid screening CBC WITH AUTO DIFFERENTIAL Routine 03/16/2025 12:05 PM CDT Fatigue, unspecified type MRI BREAST BILATERAL W WO CONTRAST Schedule Routine, Read Routine (OP Routine) 12/27/2024 11:00 AM CDT At high risk for breast cancer SURGICAL PATHOLOGY Routine 12/26/2024 10 :11 AM CDT Screen for colon cancer ENDO ADD ON COLON BIOPSY 12/26/2024 7:58 AM CDT Screening COLON REMOVAL SNARE 12/26/2024 7 :58 AM CDT Screening COLONOSCOPY 12/26/2024 7:55 AM CDT DIAGNOSTIC MAMMOGRAM BILATERAL W REI Schedule Routine, Read Routine (OP Routine) 05/26/2024 2:00 PM CDT Abnormal MRI, breast PAP AND HPV, REFLEX TO HPV GENOTYPES Routine 02/22/2024 7:15 AM CDT Cervical cancer screening from Last 3 Months or Most Recently Relevant to Health Maintenance Results * (ABNORMAL) CBC with auto differential (03/16/2025 12:05 PM CDT) WBC 11.7(H) 3.8 - 10.8 Thousand/u L [facility] RBC, POC 4.97 3.80 - 5.10 Million/uL [facility] Hgb 14.4 11.7 - 15.5 g/dL [facility] Hct 45.3(H) 35.0 - 45.0 % [facility] MCV 91.1 80.0 - 100.0 fL [facility] MCH 29.0 27.0 - 33.0 pg [facility] MCHC 31.8(L) 32.0 - 36.0 g/dL [facility] Comment: For adults, a slight decrease in the calculated MCHC value (in the range of 30 to 32 g/dL) is most likely not clinically significant; however, it should be interpreted with caution in correlation with other red cell parameters and the patient's clinical condition. Rdw 12.5 11.0 - 15.0 % [facility] Platelets 336 140 - 400 Thousand/u L [facility] MPV 9.4 7.5 - 12.5 fL [facility] Neutrophils, abs 7,933(H) 1,500 - 7,800 cells/uL [facility] Lymphocytes, abs 2,843 850 - 3,900 cells/uL [facility] Monocyte abs 702 200 - 950 cells/uL [facility] Eosinophils, abs 187 15 - 500 cells/uL [facility] Basophils, abs 35 0 - 200 cells/uL [facility] Neutrophils 67.8 % [facility] Lymphocyte pct 24.3 % [facility] Monocytes 6.0 % [facility] Eosinophils 1.6 % [facility] Basophils 0.3 % [facility] Blood 03/16/2025 12:0 5 PM CDT 03/16/2025 12:05 PM CDT Narrative [facility] - 03/17/2025 5:22 AM CDT FASTING:YES FASTING: YES Sol [facility] LAB BLOOD ORDERABLES Final Result [facility] [address] [place] [address] * (ABNORMAL) Vitamin D 25 hydroxy (03/16/2025 12:05 PM CDT) Vitamin D 25-OH 25(L) 30 - 100 ng/mL [facility] Comment: Vitamin D Status 25-OH Vitamin D: Deficiency: <20 ng/mL Insufficiency: 20 - 29 ng/mL Optimal: > or = 30 ng/mL For 25-OH Vitamin D testing on patients on D2-supplementation and patients for whom quantitation of D2 and D3 fractions is required, the [facility](TM) 25-OH VIT D, (D2,D3), LC/MS/MS is recommended: order code 70062 (patients >2yrs). See Note 1 Note 1 For additional information, please refer to http://education.[employer]/faq/ANG628 (This link is being provided for informational/ educational purposes only.) Blood 03/16/2025 12:0 5 PM CDT 03/16/2025 12:05 PM CDT Narrative [facility] - 03/17/2025 5:22 AM CDT FASTING:YES FASTING: YES Sol RODRIGUES LAB BLOOD ORDERABLES Final Result Performing Organization Address City/[facility] Co de Phone Number [facility] [address] [place] [address] * TSH (03/16/2025 12:05 PM CDT) TSH 1.46 mIU/L [facility] Comment: Reference Range > or = 20 Years 0.40-4.50 Ranges First trimester 0.26-2.66 Second trimester 0.55-2.73 Third trimester 0.43-2.91 Blood 03/16/2025 12:0 5 PM CDT 03/16/2025 12:05 PM CDT Narrative [facility] - 03/17/2025 5:22 AM CDT FASTING:YES FASTING: YES Sol RODRIGUES LAB BLOOD ORDERABLES Final Result Performing Organization Address [facility] de Phone Number [facility] [address] [place] [address] * (ABNORMAL) Hemoglobin A1c (03/16/2025 12:05 PM CDT) Pathologist [facility] Hgb A1C 5.9(H) <5.7 % of total Hgb [facility] Comment: For someone without known diabetes, a hemoglobin A1c value between 5.7% and 6.4% is consistent with prediabetes and should be confirmed with a follow-up test. For someone with known diabetes, a value <7% indicates that their diabetes is well controlled. A1c targets should be individualized based on duration of diabetes, age, comorbid conditions, and other considerations. This assay result is consistent with an increased risk of diabetes. Currently, no consensus exists regarding use of hemoglobin A1c for diagnosis of diabetes for children. Blood 03/16/2025 12:0 5 PM CDT 03/16/2025 12:05 PM CDT Narrative [facility] - 03/17/2025 5:22 AM CDT FASTING:YES FASTING: YES Sol RODRIGUES LAB BLOOD ORDERABLES Final Result Performing Organization Address [facility] Co de Phone Number [facility] [address] [place] [address] * Vitamin B12 (03/16/2025 12:05 PM CDT) [facility] Vitamin B12 204 200 - 1,100 pg/mL [facility] Comment: Please Note: Although the reference range for vitamin B12 is 200-1100 pg/mL, it has been reported that between 5 and 10% of patients with values between 200 and 400 pg/mL may experience neuropsychiatric and hematologic abnormalities due to occult B12 deficiency; less than 1% of patients with values above 400 pg/mL will have symptoms. Blood 03/16/2025 12:0 5 PM CDT 03/16/2025 12:05 PM CDT [facility] - 03/17/2025 5:22 AM CDT FASTING:YES FASTING: YES Sol RODRIGUES LAB BLOOD ORDERABLES Final Result Performing Organization Address [facility] Co de Phone Number [facility] [address] [place] [address] * (ABNORMAL) Lipid panel (03/16/2025 12:05 PM CDT) [facility] Cholesterol 170 <200 mg/dL [facility] HDL 42(L) > OR = 50 mg/dL [facility] Triglycerides 174(H) <150 mg/dL [facility] LDL 101(H) mg/dL (calc) [facility] Comment: Reference range: <100 Desirable range <100 mg/dL for primary prevention; <70 mg/dL for patients with CHD or diabetic patients with > or = 2 CHD risk factors. LDL-C is now calculated using the Adeel-Geoff calculation, which is a validated novel method providing better accuracy than the Friedewald equation in the estimation of LDL-C. Adeel US et al. ERYN. 2013;310(19): 1899-8778 (http://education.relocality/faq/AQL662) Chol/HDL ratio 4.0 <5.0 (calc) [facility] Non-HDL, (LDL+VLDL) 128 <130 mg/dL (calc) [facility] Comment: For patients with diabetes plus 1 major ASCVD risk factor, treating to a non-HDL-C goal of <100 mg/dL (LDL-C of <70 mg/dL) is considered a therapeutic option. Blood 03/16/2025 12:0 5 PM CDT 03/16/2025 12:05 PM CDT Narrative [facility] - 03/17/2025 5:22 AM CDT FASTING:YES FASTING: YES us Sol RODRIGUES LAB BLOOD ORDERABLES Final Result [facility] [address] [place] [address] * Comprehensive metabolic panel (03/16/2025 12:05 PM CDT) Pathologist [facility] Glucose 81 65 - 99 mg/dL [facility] Comment: Fasting reference interval BUN 10 7 - 25 mg/dL [facility] Creatinine 0.67 0.50 - 0.99 mg/dL [facility] eGFR 109 > OR = 60 mL/min/1.7 3m2 [facility] BUN/creat ratio SEE NOTE: (calc) [facility] Comment: Not Reported: BUN and Creatinine are within reference range. Sodium 138 135 - 146 mmol/L [facility] Potassium, pl 4.2 3.5 - 5.3 mmol/L [facility] Chloride 101 98 - 110 mmol/L [facility] CO2 31 20 - 32 mmol/L [facility] Calcium 8.9 8.6 - 10.2 mg/dL [facility] Protein, sr 6.4 6.1 - 8.1 g/dL [facility] Albumin 4.0 3.6 - 5.1 g/dL [facility] GLOBULIN 2.4 1.9 - 3.7 g/dL (calc) [facility] Alb/glob ratio 1.7 1.0 - 2.5 (calc) [facility] Bilirubin, total 0.4 0.2 - 1.2 mg/dL [facility] Alk phos 70 31 - 125 U/L [facility] AST 16 10 - 35 U/L [facility] ALT (SGPT) 15 6 - 29 U/L [facility] Blood 03/16/2025 12:0 5 PM CDT 03/16/2025 12:05 PM CDT Narrative [facility] - 03/17/2025 5:22 AM CDT FASTING:YES FASTING: YES us Sol RODRIGUES LAB BLOOD ORDERABLES Final Result [facility] [address] [place] [address] * MRI Breast Bilateral W WO Contrast (12/27/2024 11:00 AM CDT) Anatomical Region Laterality Modality Breast Bilateral Magnetic Resonan ce 12/27/2024 1:04 PM CDT Impressions 12/27/2024 1:04 PM CDT Moderate background enhancement with no change is identified compared to the prior exam. OVERALL FINAL ASSESSMENT: BI-RADS Category 2: Benign. RECOMMENDATION: Screening mammography. The patient will be due for bilateral screening mammography in May. Electronically signed by: Henrietta Evans M.D. Narrative 12/27/2024 1:04 PM CDT EXAMINATION: 1. MRI EXAMINATION OF THE BREASTS WITH AND WITHOUT CONTRAST 2. 3D POST PROCESSING ON A DEDICATED 3D WORKSTATION HISTORY: 44-year-old woman with family history of breast cancer and prior MR guided benign breast biopsy. TECHNIQUE: MRI examination of the breasts per breast tumor protocol with and without gadolinium contrast. A dedicated breast imaging coil was used. The images were transferred to a breast CAD system for 3D post processing and contrast kinetics analysis. CONTRAST: Gadoterate meglumine, 20 ml COMPARISON: Prior breast imaging studies dating back to 11/18/2023 BREAST COMPOSITION: Heterogeneous fibroglandular tissue BACKGROUND PARENCHYMAL ENHANCEMENT: Moderate FINDINGS: There continues to be diffuse non-mass enhancement bilaterally but more prominent on the right than the left and consistent with background enhancement but unchanged compared to prior exam. There are no new findings. There continue to be scattered tiny cysts. No abnormally enlarged lymph nodes are identified in the visualized portions of either axilla. Procedure Note Henrietta Evans MD - 12/27/2024 EXAMINATION: 1. MRI EXAMINATION OF THE BREASTS WITH AND WITHOUT CONTRAST 2. 3D POST PROCESSING ON A DEDICATED 3D WORKSTATION HISTORY: 44-year-old woman with family history of breast cancer and prior MR guided benign breast biopsy. TECHNIQUE: MRI examination of the breasts per breast tumor protocol with and without gadolinium contrast. A dedicated breast imaging coil was used. The images were transferred to a breast CAD system for 3D post processing and contrast kinetics analysis. CONTRAST: Gadoterate meglumine, 20 ml COMPARISON: Prior breast imaging studies dating back to 11/18/2023 BREAST COMPOSITION: Heterogeneous fibroglandular tissue BACKGROUND PARENCHYMAL ENHANCEMENT: Moderate FINDINGS: There continues to be diffuse non-mass enhancement bilaterally but more prominent on the right than the left and consistent with background enhancement but unchanged compared to prior exam. There are no new findings. There continue to be scattered tiny cysts. No abnormally enlarged lymph nodes are identified in the visualized portions of either axilla. IMPRESSION: Moderate background enhancement with no change is identified compared to the prior exam. OVERALL FINAL ASSESSMENT: BI-RADS Category 2: Benign. RECOMMENDATION: Screening mammography. The patient will be due for bilateral screening mammography in May. Electronically signed by: Henrietta Evans M.D. Eboni Lopez WRAPPER CASER IM MRI PROCEDURES Evon l Result * Surgical pathology (12/26/2024 10:11 AM CDT) Tissue (Colon, Biopsy) 12/26/2024 8:14 AM CDT Tissue specimen (specimen) (Colon, Biopsy) 12/26/2024 8:22 AM CDT Tissue specimen (specimen) (Colon, Biopsy) 12/26/2024 8:24 AM CDT Narrative PATHOLOGY [facility] - 12/27/2024 5:31 PM CDT [facility] Department of Pathology [address] [place] [address] Note to Patients: This report may contain a detailed description of human tissue sent by a health care provider to the laboratory for pathologic evaluation. The content of this report is essential for diagnosis and may provide important critical findings. This information may be unfamiliar to patients to review without a medical professional present. It is advised that the patient review this report in the presence of a health care provider who can answer questions and explain the details. Final Report Patient Name: FLOYD DEJESUS : 1980 (Age: 44) Gender: F Address: [address] [place] [address] [place] [address] Hospital #: [id number] Service: Surgery Location: Patient Type: [facility] OUTPATIENT Taken: 12/26/2024 Received: 12/26/2024 Accessioned: 12/26/2024 Reported: 12/27/2024 Physician(s): Jacob Wagoner PA-C Diagnosis: A. Transverse colon polyps x3, biopsy - One tubular adenoma. - Fragments of sessile serrated lesions/adenoma(s). B. Sigmoid colon polyps x2, biopsy - Hyperplastic polyps. C. Rectal polyps x3, biopsy - Hyperplastic polyps. Efe Mcghee M.D. Report Electronically Reviewed and Signed Out By Efe Mcghee M.D. 12/27/2024 17:31:45 Specimen(s) Received: A: Transverse colon polyp x3 B: Sigmoid colon polyp x 2 C: Rectal polyp biopsy x3 Microscopic Description: Microscopic examination is performed. Microscopic examination is performed. Clinical History: The patient is a 44-year-old woman presenting for colon cancer screening. Operative procedure: Colonoscopy with biopsy. Gross Description Received in three formalin jars labeled with the patient's identifiers. A. Labeled transverse colon polyp x3 and consists of two simental-pink tissue fragments measuring 0.1 cm and 0.4 cm. Also in the specimen container is a 0.8 x 0.7 x 0.6 cm simental-red, polypoid tissue with an identifiable resection margin (inked black and trisected). Entirely submitted. Labeled A1. Jar 0. B. Labeled sigmoid colon polyp x2 and consists of two simental tissue fragments each measuring 0.3 cm. Entirely submitted. Labeled B1. Jar 0. C. Labeled rectal polyp biopsy x3 and consists of three simental-pink tissue fragments ranging from 0.2-0.3 cm. Entirely submitted. Labeled C1. Jar 0. [facility]/12/26/2024 13:34 MIREILLE Moses, PA (ASCP) Microscopic slide review and interpretation for this case was performed at [facility], Department of Surgical Pathology, [address] [facility] [place], [place] [id number], [place] [address] [facility] # [id number] us Sylvie Harris MD LAB PATHOLOGY ORDERABLES Final R esult PATHOLOGY [facility] * Colonoscopy (12/26/2024 7:55 AM CDT) Anatomical Region Laterality Modality Other Narrative Procedure Note Sylvie Harris MD - 12/26/2024 7:55 AM CDT [facility] GI ENDOSCOPY Patient Name: Floyd Dejesus Procedure Date: 12/26/2024 7:55 AM Date of : 1980 Admit Type: Outpatient Age: 44 Gender: Female Attending MD: Sylvie Harris M.D. Room: [facility] ENDOSCOPY ROOM 05 Note Status: Finalized Procedure: Colonoscopy Indications: Screening for colorectal malignant neoplasm Referring MD: Providers: Sylvie Harris M.D. Medicines: See the Anesthesia note for documentation of the administered medications Complications: No immediate complications. Estimated Blood Loss: Estimated blood loss was minimal. Procedure: The benefits, risks and alternatives of theprocedure and sedation were discussed and informed consentwas obtained. All questions were answered. Please referto the signed informed consent document in the medical record. The scope was passed under direct vision.The CF-H180AL colonoscope was introduced through theanus and advanced to the cecum, identified byappendiceal orifice and ileocecal valve. The colonoscopy was performed without difficulty. The patient tolerated the procedure well. The quality of the bowel preparation was adequate. Findings: The perianal and digital rectal examinations were normal. The terminal ileum appeared normal. Two sessile polyps were found in the transverse colon. The polypswere 3 to 8 mm in size. These polyps were removed with a jumbo cold forceps. Resection and retrieval were complete. A 15 mm polyp was found in the transverse colon. The polyp wassessile. The polyp was removed with a hot snare. Resection and retrieval were complete. To prevent bleeding post-intervention, one hemostatic clipwas successfully placed. There was no bleeding during, or at the end, ofthe procedure. Two sessile polyps were found in the sigmoid colon. The polyps were 5mm in size. These polyps were removed with a jumbo cold forceps.Resection and retrieval were complete. Three sessile polyps were found in the rectum. The polyps were 5 mmin size. These polyps were removed with a jumbo cold forceps. Resectionand retrieval were complete. Diverticula were found in the colon. Internal hemorrhoids were found during retroflexion. The hemorrhoids were small. Impression: - The examined portion of the ileum was normal. - Two 3 to 8 mm polyps in the transverse colon, removed with a jumbo cold forceps. Resected and retrieved. - One 15 mm polyp in the transverse colon, removed with a hot snare. Resected and retrieved. Clip was placed. - Two 5 mm polyps in the sigmoid colon, removedwith a jumbo cold forceps. Resected and retrieved. - Three 5 mm polyps in the rectum, removed with a jumbo cold forceps. Resected and retrieved. - Diverticulosis. - Internal hemorrhoids. Recommendation: - Repeat colonoscopy in 2 years for surveillance if adenomatous. - No aspirin, ibuprofen, naproxen, or other non-steroidal anti-inflammatory drugs for 5 days. Sylvie Harris M.D. Sylvie Harris M.D. 12/26/2024 8:30:48 AM . Number of Addenda: 0 Note Initiated On: 12/26/2024 7:55 AM Recognized by the [employer] for promoting quality in endoscopy us Sylvie Harris MD ENDOSCOPY PROCEDURES Final Resul t * Diagnostic Mammogram Bilateral W Rei (05/26/2024 2:00 PM CDT) Anatomical Region Laterality Modality Breast Bilateral Mammography 05/26/2024 3:43 PM CDT Impressions 05/26/2024 3:45 PM CDT 1. No ultrasound or mammographic correlate for the MRI finding in the upper left breast is visualized. Recommend MRI directed biopsy. 2. No mammographic findings of malignancy in either breast. OVERALL FINAL ASSESSMENT: SUSPICIOUS. BI-RADS Category 4B: Moderate suspicion for malignancy. RECOMMENDATION: MRI guided biopsy of the abnormal enhancing foci in the upper left breast, no mammographic or ultrasound correlate is present. MRI biopsy is already scheduled. Dictated by: Anderson Humphrey D.O. The radiology attending physician has personally reviewed this study, and had reviewed and/or edited this written report and agrees with it. Electronically signed by: Jennifer Robledo M.D. Narrative 05/26/2024 3:45 PM CDT EXAMINATION: BILATERAL DIGITAL DIAGNOSTIC MAMMOGRAM INCLUDING CAD AND BILATERAL DIGITAL BREAST TOMOSYNTHESIS; LEFT BREAST SONOGRAM HISTORY: 44-year-old woman presents for 2nd look mammographic and ultrasonographic imaging of the abnormality in the upper left breast found on MRI. COMPARISON: Multiple prior studies, most recently 05/22/2024 and dating back to 12/05/2015. TECHNIQUE: Full field digital mammographic views of BOTH breasts were performed, including computer aided detection (CAD) and BILATERAL digital breast tomosynthesis (DBT). Directed ultrasound evaluation of the LEFT breast was performed. BREAST PARENCHYMAL COMPOSITION: The breasts are heterogeneously dense, which may obscure small masses. MAMMOGRAM FINDINGS: There is no new suspicious abnormality in either breast. Unchanged benign calcifications are present in bilateral breasts. SONOGRAM FINDINGS: There is no focal abnormal solid or cystic lesion suggestive of malignancy in the area of recent concern in the left breast 11:00 to 1:00 region. Procedure Note Jennifer Robledo MD - 05/26/2024 EXAMINATION: BILATERAL DIGITAL DIAGNOSTIC MAMMOGRAM INCLUDING CAD AND BILATERAL DIGITAL BREAST TOMOSYNTHESIS; LEFT BREAST SONOGRAM HISTORY: 44-year-old woman presents for 2nd look mammographic and ultrasonographic imaging of the abnormality in the upper left breast found on MRI. COMPARISON: Multiple prior studies, most recently 05/22/2024 and dating back to 12/05/2015. TECHNIQUE: Full field digital mammographic views of BOTH breasts were performed, including computer aided detection (CAD) and BILATERAL digital breast tomosynthesis (DBT). Directed ultrasound evaluation of the LEFT breast was performed. BREAST PARENCHYMAL COMPOSITION: The breasts are heterogeneously dense, which may obscure small masses. MAMMOGRAM FINDINGS: There is no new suspicious abnormality in either breast. Unchanged benign calcifications are present in bilateral breasts. SONOGRAM FINDINGS: There is no focal abnormal solid or cystic lesion suggestive of malignancy in the area of recent concern in the left breast 11:00 to 1:00 region. IMPRESSION: 1. No ultrasound or mammographic correlate for the MRI finding in the upper left breast is visualized. Recommend MRI directed biopsy. 2. No mammographic findings of malignancy in either breast. OVERALL FINAL ASSESSMENT: SUSPICIOUS. BI-RADS Category 4B: Moderate suspicion for malignancy. RECOMMENDATION: MRI guided biopsy of the abnormal enhancing foci in the upper left breast, no mammographic or ultrasound correlate is present. MRI biopsy is already scheduled. Dictated by: Anderson Humphrey D.O. The radiology attending physician has personally reviewed this study, and had reviewed and/or edited this written report and agrees with it. Electronically signed by: Jennifer Robledo M.D. Deisi Carnes MD PhD IMG MAMMO PROCEDURES Final Result * Pap and HPV, reflex to HPV Genotypes (02/22/2024 7:15 AM CDT) CLINICAL INFORMATION: [facility] Comment:Routine exam LMP [facility] Comment:01/23/24 Previous Pap [facility] Comment:NONE GIVEN Prev. Bx [facility] Comment:NONE GIVEN SOURCE: [facility] Comment:Cervix, Endocervix Pap, specimen adequacy [facility] Comment: Satisfactory for evaluation. Endocervical/transformation zone component present. HPV interp [facility] Comment: Cytology Results: Negative for intraepithelial lesion or malignancy. COMMENTS [facility] Comment: This Pap test has been evaluated with computer assisted technology. Detail Manager Que [facility] Comment: MEF, CT(ASCP) CT screening location: [place] [address] [address] [place] [id number] Comment [facility] Comment: EXPLANATORY NOTE: The Pap is a screening test for cervical cancer. It is not a diagnostic test and is subject to false negative and false positive results. It is most reliable when a satisfactory sample, regularly obtained, is submitted with relevant clinical findings and history, and when the Pap result is evaluated along with historic and current clinical information. Human papillomavirus DNA, High Risk E6/E7 Not Detected NOT DETECTED [facility] [place] Comment: Not Detected High Risk HPV types (16,18,31,33,35,39,45,51,52, 56,58,59,66,68) were not detected. Other HPV types which cause anogenital lesions may be present. The significance of the other types of HPV in malignant processes has not been established. Methodology: Real Time PCR Thin prep 02/22/2024 7:15 AM CDT 02/23/2024 5:19 AM CDT oSl [facility] CYTOLOGY ORDERABLES Fi nal Result [facility] [address] [address] [place] [id number] [facility] [address] [facility] [place] [address] from Last 3 Months or Most Recently Relevant to Health Maintenance Insurance [facility] Care Teams Access Control Specialist Relationship Specialty Start Date End Date Sol Moore PA [address] [place] [address] PCP - General Internal Medicine 02/02/19
--- OUTSIDE RECORDS SUMMARY | 2025-03-23 09:47 | XMS_ITS | Encounter Summary ---
Author Organization [facility] Healthcare Address [address] [place] [address] Care Team Providers Care Casting Technician Name Role Phone Unavailable Primary Care Provider Unavailabl e Reason for Visit * Diagnostic Imaging (Routine) - Closed Specialty Diagnoses / Procedures Referred By Contac t Referred To Contact Diagnoses Abnormal mammogram of right breast Procedures Breast Imaging Screening Outside Reference Corinna Gallardo, LENS COATER [address] [facility] [address] [place] [address] Phone: tel: fax: Referral ID Status Reason Start Date Expiration Date Visits Re quested Visits Authorized [id number] Closed 08/10/2023 09/08/2024 1 1 Encounter Details Date Type Department Care Team (Late st Contact Info) Description 12/05/2015 Hospital Encounter [facility] [address] [place] [id number] Social History Tobacco Use Types Packs/Day Years Used Date Smoking Tobacco: Every Day Cigarettes 0.3 25 Smokeless Tobacco: Never Alcohol Use Standard Drinks/Week Comments Yes 0 [...] on file 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 on file Not on file Not on file documented as of this encounter Functional Status * Audit-C Score Answer Date of Assessment Author 0 03/23/2025 7:35 AM CDT Rachelle Altamirano LPN * Question Answer Date of Assessment Author Q1: How often do you have a drink containing alcohol? Never 03/23/2025 7:35 AM CDT Rachelle Altamirano LPN Q2: How many drinks containing alcohol do you have on a typical day when you are drinking? Patient does not drink 03/23/2025 7:35 AM CDT Rachelle Altamirano LPN Q3: How often do you have six or more drinks on one occasion? Never 03/23/2025 7:35 AM CDT Rachelle Altamirano LPN documented as of this encounter Plan of Treatment Not on file documented as of this encounter Procedures Procedure Name Priority Date/Time Associated Diagnosis Comments BREAST IMAGING MG SCREENING OUTSIDE REFERENCE Schedule Routine, Read Routine (OP Routine) 12/05/2015 12:00 AM CDT Abnormal mammogram of right breast documented in this encounter Results * Breast Imaging Screening Outside Reference (12/05/2015 12:00 AM CDT) Impressions RAD_MAMMO_[facility] - 08/10/2023 7:16 PM LASER MACHINE OPERATOR These images are for Reference purposes only and have not been reviewed by [facility]. There will be no report generated by a [facility] Radiologist. Narrative RAD_MAMMO_[facility] - 08/10/2023 7:16 PM LASER MACHINE OPERATOR EXAMINATION: Images For Reference Purposes Only us Corinna Gallardo LENS COATER IMG MAMMO PROCEDURES Final Re sult RAD_MAMMO_[facility] documented in this encounter Visit Diagnoses Not on filedocumented in this encounter
--- OUTSIDE RECORDS SUMMARY | 2025-03-23 09:47 | XMS_ITS | Encounter Summary ---
Author Organization [facility] Healthcare Address [address] [place] [address] Care Team Providers Care Green Meat Grader Name Role Phone Sol Moore Primary Care Provider [phone]- [phone] Reason for Visit * Reason Onset Date Comments Referral Request 03/23/2025 Encounter Details Date Type Department Care Team (Late st Contact Info) Description 03/23/2025 Telephone [facility] Medical Group Family Medicine [address] [place] [address] Sol Moore PA [address] [place] [address] Referral Request Social History Tobacco Use Types Packs/Day Years [...] on file 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 Call warm transferred to the backline. Does message need to be routed? No Reason for Warm Transfer: Provider to Provider Calls Practice Accepted the Warm Transfer? Yes Additional Comments If YES above, and no barriers. documented in this encounter Plan of Treatment Not on file documented as of this encounter Visit Diagnoses Not on filedocumented in this encounter Care Teams Green Meat Grader Relationship Specialty Start Date End Date Sol Moore PA [address] [place] [address] PCP - General Internal Medicine 02/02/19 documented as of this encounter
--- OUTSIDE RECORDS SUMMARY | 2025-03-23 09:47 | XMS_ITS | Encounter Summary ---
Author Organization [facility] Healthcare Address [address] [place] [address] Care Team Providers Care Motorcycle Deliverer Name Role Phone Sol Moore Primary Care Provider [phone]- [phone] Reason for Referral * MRI/CAT/PET Scan (Routine) - Pending Review Specialty Diagnoses / Procedures Referred By Contac t Referred To Contact Diagnoses RLQ abdominal pain Procedures CT Abdomen Pelvis W Contrast Sol Moore PA [address] [place] [address] Phone: tel: fax: External Order Referral ID Status Reason Start Date Expiration Date V isits Requested Visits Authorized [id number] Pending Review 03/23/2025 04/22/2026 1 1 Reason for Visit * Reason Comments Follow-up RLQ pain Started as stabbing pain last week and then went to dull pain. Worse when apply pressure. Better today but wants to discuss. No vomiting or fever. Two episodes of diarrhea. Normal color. 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 on file Not on file Not on file documented as of this encounter Last Filed Vital Signs Vital Sign Reading Time Taken Comments Blood Pressure 142/86 03/23/2025 7:35 AM CDT Pulse 83 03/23/2025 7:35 AM CDT Temperature 36.8 C (98.2 F) 03/23/2025 7:35 AM CDT Respiratory Rate - - Oxygen Saturation 97% 03/23/2025 7:35 AM CDT Inhaled Oxygen Concentration - - Weight 99.8 kg (220 lb) 03/23/2025 7:35 AM CDT Height - - Body Mass Index 35.51 11/23/2024 7:12 AM CDT documented in this encounter Functional Status * Audit-C Score [...] as of this encounter Miscellaneous Notes * Assessment & Plan Note - Rachelle Altamirano LPN - 03/23/2025 7:39 AM CDT Associated Problem(s): Morbid obesity (HCC) Discussed the patient's BMI. The BMI is above average. BMI management plan is completed. BMI Follow-up includes: nutrition counseling, exercise counseling and education provided. * Assessment & Plan Note - Rachelle Altamirano LPN - 03/23/2025 7:39 AM CDT Associated Problem(s): BMI 35.0-35.9,adult Discussed the patient's BMI. The BMI is above average. BMI management plan is completed. BMI Follow-up includes: nutrition counseling, exercise counseling and education provided. documented in this encounter Plan of Treatment Scheduled Orders Name Type Priority Associated Diagnoses Orde r Schedule Allergen Alpha-gal (food) IgE Lab Routine Nausea Expected: 03/26/2025, Expires: 03/23/2026 Vitamin B12 Lab Routine Low vitamin B12 level Expected: 03/23/2025, Expires: 03/23/2026 MMR (IGG) PANEL (MEASLES, MUMPS, RUBELLA) Lab Routine Immunity status testing Expected: 03/23/2025, Expires: 03/23/2026 CT Abdomen Pelvis W Contrast Imaging Schedule ALLYN, Read ALLYN (Appt Today, Awaiting Results) RLQ abdominal pain Expected: 03/23/2025, Expires: 03/23/2026 documented as of this encounter Visit Diagnoses Diagnosis BMI 35.0-35.9,adult- Primary Morbid obesity (HCC) Morbid obesity Nausea Nausea alone Low vitamin B12 level Immunity status testing Antibody response examination RLQ abdominal pain Abdominal pain, right lower quadrant documented in this encounter Care Teams Motorcycle Deliverer Relationship Specialty Start Date End Date Sol Moore PA [address] [facility] [address] [place] [address] PCP - General Internal Medicine 02/02/19 documented as of this encounter
--- OUTSIDE RECORDS SUMMARY | 2025-03-23 09:47 | XMS_ITS | Continuity of Care Document ---
Author Name [facility] Organization [facility] Care Team Providers Care Head Of Business Development Name Role Phone [facility] Unavailable Unavailable Problems Combined list of problems from Department of Defense and Veterans Affairs facilities. It does not include entries that were removed or entered in error. Problem Status Onset Date Problem Type Date of Resolution Comments Source PHARYNGITIS Inactive Condition pt to re start using her combivent; f/u no improvmetn/in creased sx's DoD visit for: issue repeat prescription for medication Inactive Condition [facility] Medications Combined list of outpatient medications from Department of Defense and Veterans Affairs facilities.Medications provided include 1) outpatient medications from the last 15 months, and 2) patient-reported medications. Medication Details Route Status Patient Instructions Prescription Expires Prescription Number Last Dispense Date Ordering Provider Order Date Order Qty Source AMOXICILLIN (AMOXICILLI N), 500 MG, CAPSULE, ORAL, TEVA [place], 500 ea. BOTTLE Active [id number] 4 2023 20 Pharmac y Data Transac tion Service Facilit y FLUCONAZOLE (fluconazol e), 150 MG, TABLET, ORAL, ZYDUS PHARMACE[facility], 12 ea. BLIST PACK Active [id number] 4 2023 2 Pharmac y Data Transac tion Service Facilit y FLUCONAZOLE (fluconazol e), 150 MG, TABLET, ORAL, ZYDUS PHARMACE[facility], 12 ea. BLIST PACK Active [id number] 4 2023 2 Pharmac y Data Transac tion Service Facilit y Nitrofurant oin ([employer] [employer] [employer]) 100 CAPSULE in 1 BOTTLE Active [id number] 4 2023 14 Pharmac y Data Transac tion Service Facilit y SUMATRIPTAN SUCCINATE (SUMATRIPTA N SUCCINATE), 25 MG, TABLET, ORAL, [facility], 36 ea. BOTTLE Active [id number] 4 2023 9 Pharmac y Data Transac tion Service Facilit y SUMATRIPTAN SUCCINATE (SUMATRIPTA N SUCCINATE), 25 MG, TABLET, ORAL, [facility], 36 ea. BOTTLE Active [id number] 4 2023 9 Pharmac y Data Transac tion Service Facilit y Allergies, Adverse Reactions, Alerts Combined list of allergies from Department of Defense and [facility] facilities. It does not include entries that were removed or entered in error. Substance Category Reaction Severity Reaction type Status Date Reported Comments Source GENTAMICIN (GENTAMICIN SULFATE) Drug allergy (disorder) Unknown active 02/21/[address] [place] [address] Charles [facility] SEPTRA (SULFAMETHOX AZOLE/TRIMET HOPRIM) Drug allergy (disorder) Unknown active 02/21/[address] [place] [address]) Immunizations Combined list of available immunizations from the Department of Defense and Veterans [facility] facilities. Immunization Series Date Given Administered By Site Reaction Lot Number CVX Code Drug Program Eligibility Specialist Status Comments Source COVID-19, mRNA, LNP-S, PF, 100 mcg or 50 mcg dose 2021 QUIRIN, [employer] (MOD) Not Given COVID-19, mRNA, LNP-S, PF, 100 mcg or [address] [facility] COVID-19, mRNA, LNP-S, PF, 100 mcg or 50 mcg dose 2021 ALUL, [employer] (MOD) Not Given COVID-19, mRNA, LNP-S, PF, 100 mcg or [address] [facility] Encounters Combined list of: 1) Encounters from Department of Veterans Affairs facilities going backup to the last 18 months, not all VA inpatient encounters are included; 2) Encounters from the Department of [facility] facilities going backup to 280 months. Location Location Details Encounter Type Encounter Number Reason For Visit Attending Provider ADM Date DC Date Status Disposition Source [address] [place] [address] Charles LOZA [facility]Sco tt Internal Medicine Tm) TELE CONSULT [id number] med renewal REE EDOUARD 01/[address] [place] [address] Charles Linda [facility]S cott Interna l Medicin e Tm) [address] [place] [address] Charles Linda [facility]Fam casey Practice Non-GME FHI1) OUTPATIENT [id number] ear pain throat pain CAROL EM 05/04 Released w/o Limitations [address] [place] [address] Group Charles LOZA ([facility]F amily Practic e Non-GME FHI1) Procedures Combined list of: 1) Procedures from Department of Veterans Affairs facilities going back up to thelast 18 months, not all VA non-surgical procedures are included; 2) All procedures from the Department of Defense facilities. Procedure Procedure Type Code Date Perfomer Comments Sourc e SPIROMETRY, INCLUDING GRAPHI C RECORD, TOTAL AND TIMED VITAL CAPACITY, EXPIRATORY FLOW RATE MEASUREMENT(S), WITH OR WITHOUT MAXIMAL VOLUNTARY VENTILATION 10/02/2002 [facility] SPIROMETRY, INCLUDING GRAPHI C RECORD, TOTAL AND TIMED VITAL CAPACITY, EXPIRATORY FLOW RATE MEASUREMENT(S), WITH OR WITHOUT MAXIMAL VOLUNTARY VENTILATION 09/26/2002 [facility] SPIROMETRY, INCLUDING GRAPHI C RECORD, TOTAL AND TIMED VITAL CAPACITY, EXPIRATORY FLOW RATE MEASUREMENT(S), WITH OR WITHOUT MAXIMAL VOLUNTARY VENTILATION 09/25/2002 [facility] THERAPEUTIC PROCEDURE, 1 OR MORE AREAS, EACH 15 MINUTES; THERAPEUTIC EXERCISES TO DEVELOP STRENGTH AND ENDURANCE, RANGE OF MOTION AND FLEXIBILITY 02/22/2002 [facility] APPLICATION OF A MODALITY TO 1 OR MORE AREAS; HOT OR COLD PACKS 02/15/2002 [facility] THERAPEUTIC PROCEDURE, 1 OR MORE AREAS, EACH 15 MINUTES; THERAPEUTIC EXERCISES TO DEVELOP STRENGTH AND ENDURANCE, RANGE OF MOTION AND FLEXIBILITY 02/10/2002 [facility] THERAPEUTIC PROCEDURE, 1 OR MORE AREAS, EACH 15 MINUTES; THERAPEUTIC EXERCISES TO DEVELOP STRENGTH AND ENDURANCE, RANGE OF MOTION AND FLEXIBILITY 02/08/2002 [facility] THERAPEUTIC PROCEDURE, 1 OR MORE AREAS, EACH 15 MINUTES; THERAPEUTIC EXERCISES TO DEVELOP STRENGTH AND ENDURANCE, RANGE OF MOTION AND FLEXIBILITY 02/03/2002 [facility] DETERMINATION OF REFRACTIVE STATE 08/29/2001 [facility] DESTRUCTION (EG, LASER SURGERY, ELECTROSURGERY, CRYOSURGERY, CHEMOSURGERY, SURGICAL CURETTEMENT), PREMALIGNANT LESIONS (EG, ACTINIC KERATOSES); FIRST LESION 07/06/2001 [facility] OTHER ARTIFICIAL RUPTURE OF MEMBRANES 06/16/2000 [facility] REPAIR OF CURRENT OBSTETRIC LACERATION OF BLADDER AND URETHRA 06/16/2000 [facility] REPAIR OF OTHER CURRENT OBSTETRIC LACERATION 06/16/2000 [facility] PELVIC EXAMINATION UNDER ANESTHESIA (OTHER THAN LOCAL) 05/26/2000 [facility] ULTRASOUND, UTERUS, REAL TIME WITH IMAGE DOCUMENTATION, AND MATERNAL EVALUATION, AFTER FIRST TRIMESTER (> OR = 14 WEEKS 0 DAYS), TRANSABDOMINAL APPROACH; SINGLE OR FIRST GESTATION 05/23/2000 [facility] ROUTINE OBSTETRIC CARE INCLUDING ANTEPARTUM CARE, VAGINAL DELIVERY (WITH OR WITHOUT EPISIOTOMY, AND/OR FORCEPS) AND CARE 05/19/2000 [facility] ROUTINE OBSTETRIC CARE INCLUDING ANTEPARTUM CARE, VAGINAL DELIVERY (WITH OR WITHOUT EPISIOTOMY, AND/OR FORCEPS) AND CARE 04/12/2000 [facility] ULTRASOUND, UTERUS, REAL TIME WITH IMAGE DOCUMENTATION, AND MATERNAL EVALUATION, AFTER FIRST TRIMESTER (> OR = 14 WEEKS 0 DAYS), TRANSABDOMINAL APPROACH; SINGLE OR FIRST GESTATION 03/12/2000 [facility] IPRATROPIUM BROMIDE, INHALATION SOLUTION, FDA-APPROVED FINAL PRODUCT, NON-COMPOUNDED, ADMINISTERED THROUGH DME, UNIT DOSE FORM, PER MILLIGRAM 03/03/2006 [facility] BUPRENORPHINE IMPLANT, 74.2 MG 08/19/2005 [facility] INJECTION, METHYLPREDNISOLON E ACETATE, 20 MG 09/30/2004 [facility] INJECTION, FAMOTIDINE, 20 MG 02/20/2004 [facility] APPLICATION OF SHORT LEG RICHARD T (BELOW KNEE TO TOES); 09/04/2003 [facility] PATIENT EDUCATION, NOT OTHERWISE CLASSIFIED, NON-PHYSICIAN PROVIDER, GROUP, PER SESSION 08/02/2003 [facility] APPLICATION OF A MODALITY TO 1 OR MORE AREAS; ULTRASOUND, EACH 15 MINUTES 07/31/2003 [facility] THERAPEUTIC PROCEDURE, 1 OR MORE AREAS, EACH 15 MINUTES; THERAPEUTIC EXERCISES TO DEVELOP STRENGTH AND ENDURANCE, RANGE OF MOTION AND FLEXIBILITY 07/30/2003 [facility] APPLICATION OF A MODALITY TO 1 OR MORE AREAS; ULTRASOUND, EACH 15 MINUTES 07/27/2003 [facility] APPLICATION OF A MODALITY TO 1 OR MORE AREAS; ULTRASOUND, EACH 15 MINUTES 07/26/2003 [facility] APPLICATION OF A MODALITY TO 1 OR MORE AREAS; ULTRASOUND, EACH 15 MINUTES 07/24/2003 [facility] EXERCISE EQUIPMENT 07/23/2003 [facility] D THORACIC GAS VOLUME 06/11/2003 D oD REPAIR OF CURRENT OBSTETRIC LACERATION OF RECTUM AND SPHINCTER ANI 02/09/1998 [facility] OTHER ARTIFICIAL RUPTURE OF MEMBRANES 02/09/1998 [facility] Social History Combined list of available smoking, tobacco, and other social history from Department of Defense and Veterans Affairs facilities. Social History Type Response Date Comment Sourc e This section is an empty social history section. [facility]
--- OUTSIDE RECORDS SUMMARY | 2025-03-23 09:47 | XMS_ITS | Clinical Summary ---
Author Organization [facility] [address] Address [address] [place] [address] Care Team Providers Care Printing Plate Clerk Name Role Phone Sol Moore Primary Care Provider [phone]- [phone] Allergies Active Allergy Reactions Criticality Noted Date Comments Bee Venom Protein (Honey Bee) Unknown,Rash Medium 05/03/2015 Rash Gentamicin Sulfate Unknown 02/02/2019 Levofloxacin Unknown,Rash [...] 04/04/2024 Assessment & Plan (07/22/2024 3:12 PM CONCRETE PAVER): We reviewed her sinus CT scan which [...] 07/30/2023 Assessment & Plan (07/30/2023 11:56 AM CONCRETE PAVER): Patient notes pain in the right breast. [...] her to start vitamin-E and or evening [place] oil for the pain. Refer to breast [...] 11/09/2021 Assessment & Plan (07/22/2024 3:11 PM CONCRETE PAVER): Significantly improved. No for further intervention. Assessment [...] the infusion. Has albuterol refills from the [facility]. Treat sxs with Tylenol, Cough/cold medication otc [...] water often. If needed, use a hand deli bakery clerk that contains at least 60% alcohol. Clean [...] also like to be referred to an data entry analyst to discuss her allergies and the vaccine after she clears quarantine time. She is okay with the data entry analyst in [place]. Will make that referral upon follow-up. Neck pain 09/29/2020 Assessment & Plan (09/29/2020 8:18 PM CONCRETE PAVER): Encouraged NSAIDS (if able to safely tolerate) [...] provided Assessment & Plan (08/21/2019 10:37 PM CONCRETE PAVER): Mammogram order provided Migraine without aura and [...] stable Assessment & Plan (08/21/2019 10:36 PM CONCRETE PAVER): Continue to monitor. Start taking all meds, including Wellbutrin, daily as prescribed--will monitor to see if BENNETT resolve. Cigarette smoker 04/09/2019 Assessment & Plan (11/21/2023 11:53 PM CDT): Encouraged smoking cessation. Discussed 3 minutes. Reviewed options for assistance with cessation. Reviewed terminal operations supervisor sequela associated with smoking. Pt declines assistance at this time but may contact the office at anytime for further help as they desire. Assessment & Plan (11/12/2021 8:34 AM CDT): Encouraged smoking cessation. Discussed 3 minutes. Reviewed options for assistance with cessation. Reviewed terminal operations supervisor sequela associated with smoking. Pt declines assistance at this time but may contact the office at anytime for further help as they desire. Assessment & Plan (03/03/2020 11:01 PM CDT): Encouraged smoking cessation. Discussed 3 minutes. Reviewed options for assistance with cessation. Reviewed terminal operations supervisor sequela associated with smoking. Pt declines assistance at this time but may contact the office at anytime for further help as they desire. Assessment & Plan (08/21/2019 10:37 PM CONCRETE PAVER): Encouraged smoking cessation. Discussed 3 minutes. Reviewed options for assistance with cessation. Reviewed terminal operations supervisor sequela associated with smoking. Pt declines assistance [...] wellbutrin Assessment & Plan (08/21/2019 10:37 PM CONCRETE PAVER): Take the Wellbutrin daily. Continue to monitor [...] ppi Assessment & Plan (08/21/2019 10:36 PM CONCRETE PAVER): Stable with the PPI Other insect allergy status 03/14/2018 Assessment & Plan (11/12/2021 8:34 AM CDT): Continue with Mucinex antihistamine and Flonase to manage her allergies. Has a ProAir available for a little bit of a reactive airway. Assessment & Plan (03/03/2020 11:03 PM CDT): otc prn Assessment & Plan (08/21/2019 10:37 PM CONCRETE PAVER): Continue otc meds Intractable migraine with aura without status mi grainosus 02/02/2017 Assessment & Plan (11/23/2024 10:31 AM CDT): - Continue sumatriptan 25 mg, ondansetron 4 mg and tramadol 50 mg - Keep food journal to identify triggers for migraines COPD (chronic obstructive pulmonary disease) Chronic rhinosinusitis 10/05/2016 Laryngopharyngeal reflux (LPR) 10/05/2016 Assessment & Plan (07/22/2024 3:10 PM CONCRETE PAVER): She has had significant improvement since we [...] provided. Assessment & Plan (07/26/2023 2:32 PM CONCRETE PAVER): Discussed the patient's BMI. The BMI is [...] 35.00-39.99. Assessment & Plan (07/30/2023 11:52 AM CONCRETE PAVER): Discussed the patient's BMI. The BMI is [...] pathology with patient. BMI 35.0-35.9,adult 04/02/2020 11/13/19 Assessment & Plan (04/02/2020 1:16 PM CDT): [...] vaccine Assessment & Plan (08/21/2019 10:38 PM CONCRETE PAVER): Encouraged vaccine. Reviewed risks/ benefits. Patient refuses and accepts risks. Encounters Date Type Department Care Team Description 03/23/2025 7:30 AM CDT Office Visit [facility] [address] [place] [address] Sol Moore PA BMI 35.0-35.9,adult (Primary Dx); Morbid obesity (HCC); Nausea; Low vitamin B12 level; Immunity status testing; RLQ abdominal pain 03/23/2025 Telephone [facility] [address] [place] [address] Sol Moore PA Referral Request 03/17/2025 Results Follow-Up [facility] [address] [place] [address] Sol Moore PA CBC with auto differential, Comprehensive metabolic panel, Hemoglobin A1c, Additional followed-up results: 4 12/27/2024 9:30 AM CDT - 12/27/2024 11:59 PM CDT Hospital Encounter [facility] [address] [place] [address] At high risk for breast cancer Discharge Disposition: Discharge to home or self care 12/27/2024 Results Follow-Up [facility] Surgery [address] [place] [address] Eboni Lopez NP MRI Breast Bilateral W WO Contrast 12/26/2024 8:00 AM CDT - 12/26/2024 8:30 AM CDT Surgery [facility] [address] [place] [address] Sylvie Harris MD COLON REMOVAL SNARE 12/26/2024 7:58 AM CDT Anesthesia Event [facility] [address] [place] [address] Rita Vance MD 12/26/2024 6:47 AM CDT - 12/26/2024 9:02 AM CDT Hospital Encounter [facility] [address] [place] [address] Sylvie Harris MD Screen for colon cancer Discharge Disposition: Discharge to home or self care from Last 3 Months Immunizations Immunization Administration Dates Next Due Influenza, Unspecified 08/23/2024(Deferr ed: Patient Refused),11/16/2022(Deferred: Patient Refused),08/23/2021(Deferred: Patient Refused),05/23/2020,05/23/2020(Deferred: Patient Refused),08/21/2019(Deferred: Patient Refused),05/23/2019,07/23/2018(Deferred: Patient Refused) Tdap 09/01/2018 Surgical History Surgery Date Site/Laterality Comments TUBAL LIGATION 09/23/2013 - 10/20/2013 ABLATION 09/23/2013 - 10/20/2013 ANKLE SURGERY 2006 bone cyst ARM SURGERY 09/23/1996 - 10/20/1996 2 screws BREAST BIOPSY 05/31/2024 Left Medical History Medical History Date Comments Asthma Migraine without aura and without status migrain osus, not intractable GERD (gastroesophageal reflux disease) Allergic Tonsillitis Tonsil stone Nosebleed Family History Medical History Relation Name Comments Breast cancer Cousin Brittany Affected pater nal aunt's daughter; double mastectomy, no chemo or radiation; genetic testing negative. Atrial fibrillation Father COPD Father Hypertension Father Stroke Father Breast cancer Father's Sister Lumpectomy, genetic testing negative Asthma Mother Breast cancer Mother no genetic poncho ting Breast cancer Other 1 Maternal Great Aunt Colon cancer Other 2 mom's cousin Breast cancer Paternal Grandmother Mastec jeremy Relation Name Status Comments Cousin Brittany Alive Father Alive Father's Sister Alive Mother Alive Other 1 Other 2 mom's cousin Alive Paternal Grandmother Social History Tobacco Use Types Packs/Day Years [...] on file Legal Sex Female 2:20 AM CONCRETE PAVER Gender Identity Not on file Sexual Orientation Not on file 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 on file Not on file Not on file Obstetrics History Para Term AB IAB SAB Ectopic Multiple Livin g Live Births 2 2 2 Date Outcome GA Total Labor Labor/2nd/3rd Weight Sex Type Anes PTL Nicole A1 A5 Name Clin Term Term Last Filed Vital Signs Vital Sign Reading [...] 11/23/2024 7:12 AM CDT Plan of Treatment Health Maintenance Due Date Last Done Comments Hepatitis C Screening 1980 Hepatitis B Screening 1996 Pneumococcal vaccine <65 (1 of 2 - PCV) 1997 Covid-19 Vaccine (3 - season) 2024 10/24/2021, 09/26/2021 Influenza Vaccine (#1) 2025 05/23/2020, 2018 Breast Cancer Screening-Mammogram 05/26/2025 05/26/2024, 05/01/2023, 05/01/2023 Regular Well Visit/Exam 18-64 11/23/2025 11/23/2024, 02/22/2024, 11/18/2023, Additional history exists Depression Screening 03/23/2026 03/23/2025, 11/23/2024, 02/22/2024, Additional history exists DTaP/Tdap/Td Vaccine (2 - Td or Tdap) 09/01/2028 09/01/2018 Cervical Cancer Screening-Pap and HPV 02/21/2029 02/22/2024, 10/11/2018 Colon Cancer Screening-Colonoscopy 12/26/2034 12/26/2024 Cervical Cancer Screening Discontinued 02/22/2024, HPV Vaccines Aged Out No longer eligi ble based on patient's age to complete this topic Medical Devices Implanted Type Area Upper Inspector Device Identifier Shelf Expiration Date Model / Serial / Lot Plate And Screws Left: Arm Lotaris Mri Guided Rigid Deployment Device Cork Marker Breast Local Marketersark Td 13-Mr - [id number] Implanted:Qty: 1 on 05/31/2024 at [facility] mediafeediaARK TD 13-MR / / Procedures Procedure Name [...] 9.4 7.5 - 12.5 fL [facility] Neutrophils, abs 7,933(H) 1,500 - 7,800 cells/uL [facility] Lymphocytes, abs 2,843 850 - 3,900 cells/uL [facility] Monocyte abs 702 200 - 950 cells/uL [facility] Eosinophils, abs 187 15 - 500 cells/uL [facility] Basophils, abs 35 0 - 200 cells/uL [facility] Neutrophils 67.8 % [facility] Lymphocyte pct 24.3 % [facility] Monocytes 6.0 % [facility] Eosinophils 1.6 % [facility] Basophils 0.3 % [facility] Blood 03/16/2025 12:0 5 PM CDT 03/16/2025 12:05 PM CDT Narrative [facility] - 03/17/2025 5:22 AM CDT FASTING:YES FASTING: YES Sol RODRIGUES LAB BLOOD ORDERABLES Final Result [facility] [address] [place] [address] * (ABNORMAL) Vitamin D 25 hydroxy (03/16/2025 12:05 PM CDT) Vitamin D 25-OH 25(L) 30 - 100 ng/mL [facility] Comment: Vitamin D Status 25-OH Vitamin D: Deficiency: <20 ng/mL Insufficiency: 20 - 29 ng/mL Optimal: > or = 30 ng/mL For 25-OH Vitamin D testing on patients on D2-supplementation and patients for whom quantitation of D2 and D3 fractions is required, the [facility](TM) 25-OH VIT D, (D2,D3), LC/MS/MS is recommended: order code 37246 (patients >2yrs). See Note 1 Note 1 For additional information, please refer to http://education.[employer])/faq/IYI058 (This link is being provided for informational/ educational purposes only.) Blood 03/16/2025 12:0 5 PM CDT 03/16/2025 12:05 PM CDT Narrative [facility] - 03/17/2025 5:22 AM CDT FASTING:YES FASTING: YES Sol RODRIGUES LAB BLOOD ORDERABLES Final Result [facility] [address] [facility] [place] [address] * TSH (03/16/2025 12:05 PM CDT) Pathologist [facility] TSH 1.46 mIU/L [facility] Comment: Reference Range > or = 20 Years 0.40-4.50 Ranges First trimester 0.26-2.66 Second trimester 0.55-2.73 Third trimester 0.43-2.91 Blood 03/16/2025 12:0 5 PM CDT 03/16/2025 12:05 PM CDT Narrative [facility] - 03/17/2025 5:22 AM CDT FASTING:YES FASTING: YES Sol RODRIGUES LAB BLOOD ORDERABLES Final Result Performing Organization Address City/[facility] Co de Phone Number [facility] [address] [place] [address] * (ABNORMAL) Hemoglobin A1c (03/16/2025 12:05 PM CDT) Hgb A1C 5.9(H) <5.7 % of total Hgb [facility] Comment: For someone without known diabetes, a [...] BLOOD ORDERABLES Final Result Performing Organization Address [facility] Co de Phone Number [facility] [address] [place] [address] * Vitamin B12 (03/16/2025 12:05 PM CDT) Pathologist [facility] Vitamin B12 204 200 - 1,100 pg/mL [facility] Comment: Please Note: Although the reference [...] BLOOD ORDERABLES Final Result Performing Organization Address [facility] de Phone Number [facility] [address] [place] [address] * (ABNORMAL) Lipid panel (03/16/2025 12:05 PM CDT) Pathologist [facility] Cholesterol 170 <200 mg/dL [facility] HDL 42(L) > OR = 50 mg/dL [facility] Triglycerides 174(H) <150 mg/dL [facility] LDL 101(H) mg/dL (calc) [facility] Comment: Reference range: <100 Desirable range <100 mg/dL for primary prevention; <70 mg/dL for patients with CHD or diabetic patients with > or = 2 CHD risk factors. LDL-C is now calculated using the Adeel-Tellez calculation, which is a validated novel method providing better accuracy than the Friedewald equation in the estimation of LDL-C. Adeel SS et al. ERYN. 2013;310(19): 6330-5440 (http://education.[employer])/faq/JRA722) Chol/HDL ratio 4.0 <5.0 (calc) [facility] Non-HDL, (LDL+VLDL) 128 <130 mg/dL (calc) [facility] Comment: For patients with diabetes plus 1 major ASCVD risk factor, treating to a non-HDL-C goal of <100 mg/dL (LDL-C of <70 mg/dL) is considered a therapeutic option. Blood 03/16/2025 12:0 5 PM CDT 03/16/2025 12:05 PM CDT Narrative [facility] - 03/17/2025 5:22 AM CDT FASTING:YES FASTING: YES Sol RODRIGUES LAB BLOOD ORDERABLES Final Result [facility] [address] [place] [address] * Comprehensive metabolic panel (03/16/2025 12:05 PM CDT) [facility] Glucose 81 65 - 99 mg/dL [facility] Comment: Fasting reference interval BUN 10 7 - 25 mg/dL [facility] Creatinine 0.67 0.50 - 0.99 mg/dL [facility] eGFR 109 > OR = 60 mL/min/1.7 3m2 [facility] BUN/creat ratio SEE NOTE: 6 - 22 (calc) [facility] Comment: Not Reported: BUN and Creatinine are within reference range. Sodium 138 135 - 146 mmol/L [facility] Potassium, pl 4.2 3.5 - 5.3 mmol/L [facility] Chloride 101 98 - 110 mmol/L [facility] CO2 31 20 - 32 mmol/L [facility] Calcium 8.9 8.6 - 10.2 mg/dL [facility] Protein, sr 6.4 6.1 - 8.1 g/dL [facility] Albumin 4.0 3.6 - 5.1 g/dL [facility] GLOBULIN 2.4 1.9 - 3.7 g/dL (calc) [facility] Alb/glob ratio 1.7 1.0 - 2.5 (calc) [facility] Bilirubin, total 0.4 0.2 - 1.2 mg/dL [facility] Alk phos 70 31 - 125 U/L [facility] AST 16 10 - 35 U/L [facility] ALT (SGPT) 15 6 - 29 U/L [facility] Blood 03/16/2025 12:0 5 PM CDT 03/16/2025 12:05 PM CDT Narrative [facility] - 03/17/2025 5:22 AM CDT FASTING:YES FASTING: YES us Sol RODRIGUES LAB BLOOD ORDERABLES Final Result Performing Organization Address City/State/[facility] Co de Phone Number [facility] [address] [place] [address] * MRI Breast Bilateral W WO Contrast [...] signed by: Henrietta Evans M.D. Eboni Lopez NP IM MRI PROCEDURES Evon farah Result * Surgical pathology (12/26/2024 10:11 AM CDT) Tissue (Colon, Biopsy) 12/26/2024 8:14 AM CDT Tissue specimen (specimen) (Colon, Biopsy) 12/26/2024 8:22 AM CDT Tissue specimen (specimen) (Colon, Biopsy) 12/26/2024 8:24 AM CDT Narrative PATHOLOGY [facility] - 12/27/2024 5:31 PM CDT [facility] Department of Pathology [address] [place] [address] Note to Patients: This report may contain [...] : 1980 (Age: 44) Gender: F Address: [address] [place] [address] Hospital #: [id number] Service: Surgery Location: Patient Type: [facility] Taken: 12/26/2024 Received: 12/26/2024 Accessioned: 12/26/2024 [...] cm. Entirely submitted. Labeled C1. Jar 0. [facility]/12/26/2024 13:34 MIREILLE Moses, PA (ASCP) Microscopic slide review and interpretation for this case was performed at [facility], Department of Surgical Pathology, [address] [facility] [place], [place] [id number], [place] [address] CLIA # [id number] Sylvie Harris MD LAB PATHOLOGY ORDERABLES Final R esult PATHOLOGY [facility] * Colonoscopy (12/26/2024 7:55 AM CDT) Anatomical Region Laterality Modality Other Narrative Procedure Note Sylvie Harris MD - 12/26/2024 7:[address] [facility] GI ENDOSCOPY Patient Name: Floyd Dejesus Procedure Date: 12/26/2024 7:55 AM Date of : 1980 Admit Type: Outpatient Age: 44 Gender: Female Attending MD: Sylvie Harris M.D. Room: [facility] ENDOSCOPY ROOM 05 Note Status: Finalized Procedure: [...] On: 12/26/2024 7:55 AM Recognized by the [employer] for promoting quality [...] Genotypes (02/22/2024 7:15 AM CDT) CLINICAL INFORMATION: [facility] Comment:Routine exam LMP [facility] Comment:01/23/24 Previous Pap [facility] Comment:NONE GIVEN Prev. Bx [facility] Comment:NONE GIVEN SOURCE: [facility] Comment:Cervix, Endocervix Pap, specimen adequacy [facility] Comment: Satisfactory for evaluation. Endocervical/transformation zone component present. HPV interp [facility] Comment: Cytology Results: Negative for intraepithelial lesion or malignancy. COMMENTS [facility] Comment: This Pap test has been evaluated with computer assisted technology. Patrol Agent [facility] Comment: MEF, CT(ASCP) CT screening location: [place] [address] [place] [address] Comment [facility] Comment: EXPLANATORY NOTE: The Pap is a [...] High Risk E6/E7 Not Detected NOT DETECTED [facility] [place] Comment: Not Detected High Risk HPV types (16,18,31,33,35,39,45,51,52, 56,58,59,66,68) were not detected. Other HPV types which cause anogenital lesions may be present. The significance of the other types of HPV in malignant processes has not been established. Methodology: Real Time PCR Thin prep 02/22/2024 7:15 AM CDT 02/23/2024 5:19 AM CDT Sol RODRIGUES LAB CYTOLOGY ORDERABLES nal Result [facility] [address] [place] [address] [facility] [address] [place] [address] from Last 3 Months or Most Recently Relevant to Health Maintenance Insurance [facility] Care Teams Printing Plate Clerk Relationship Specialty Start Date End Date Sol Moore PA [address] [place] [address] PCP - General Internal Medicine 02/02/19
--- OUTSIDE RECORDS SUMMARY | 2025-03-23 09:47 | XMS_ITS | Clinical Summary ---
Author Organization [facility] Address [address] [place] [address] Care Team Providers Care Wash Crew Person Name Role Phone Unavailable Primary Care Provider Unavailabl e Social History Tobacco Use Types Packs/Day Years Used Date Smoking Tobacco: Never Assessed Comments Unknown Sex and Gender Information Value Date Recorded Sex Assigned at Not on file Legal Sex Female 5:36 PM LITIGATION CLAIM REPRESENTATIVE Gender Identity Not on file Sexual Orientation Not on file Plan of Treatment Health Maintenance Due Date Last Done Comments HEPATITIS B VACCINES (1 of 3 - 19+ 3-dose series) 1997 HPV/Cotest (21-29) 1999 CERVICAL CANCER SCREENING 2008 HPV/Cotest (30-65) 2008 PAP SMEAR 2008 COLORECTAL SCREENING 2023 Colorectal Cancer Screening 2023 FIT-DNA Q 3 years 2023 FIT/FOBT Q 1 year 2023 Flex Sig/CT Colonography Q 5 years 2023 BREAST CANCER SCREENING 05/20/2024 05/20/20 23, 05/01/2023, 05/01/2023, Additional history exists INFLUENZA VACCINE (#1) 2025 DTAP/TDAP/TD VACCINES (2 - Td or Tdap) 09/01/2028 09/01/2018 HPV VACCINES Aged Out No longer eligi ble based on patient's age to complete this topic Procedures Procedure Name Priority Date/Time Associated Diagnosis Comments MAMMO DIAG UNI RIGHT 3D JIGAR W OR WO CAD Routine 05/20/2023 12:15 PM CDT Unspecified lump in the right breast, lower outer quadrant from Last 3 Months or Most Recently Relevant to Health Maintenance Results * (ABNORMAL) MAMMO DIAG UNI RIGHT 3D JIGAR W OR WO CAD (05/20/2023 12:15 PM CDT) Anatomical Region Laterality Modality Breast Right Mammography 05/20/2023 12:1 6 PM CDT Impressions 05/20/2023 12:29 PM CDT : Probable benign calcifications in the right outer breast. Recommend follow-up with a right diagnostic mammogram in six months. OVERALL BIRADS CATEGORY right breast:3 (probable benign findings - recommend short interval follow-up). A letter will be sent to patient. Narrative 05/20/2023 12:29 PM CDT EXAM: MAMMO DIAG UNI RIGHT 3D JIGAR W OR WO CAD STUDY DATE: 05/20/2023 12:15 PM CLINICAL INDICATION: 43 years old female presents for diagnostic evaluation off right breast calcifications. COMPARISON: Prior mammograms dated 05/01/2023 and 12/05/2015 PROCEDURE: Magnification CC, magnification ML and 3D ML digital mammographic views of the bilateral breasts are obtained. Computer Aided Detection (CAD) was utilized. Tomosynthesis was done with the ML view. FINDINGS: Breast Density: Heterogeneously dense, which may lower the sensitivity of mammography. There are loosely scattered, regional calcifications in the right outer breast which did not demonstrate biliary ductal or segmental distribution. There are no spiculated masses or areas of architectural distortion in the right breast. Sol Moore PA-C MAMMO ORDERABLES Final Re sult from Last 3 Months or Most Recently Relevant to Health Maintenance [place] [address] [place] [id number]
--- OUTSIDE RECORDS SUMMARY | 2025-03-23 09:47 | XMS_ITS | Encounter Summary ---
Author Organization [facility] Healthcare Address [address] [place] [address] Care Team Providers Care Rack Maker Name Role Phone Sol Moore Primary Care Provider [phone] Encounter Details Date Type Department Care Team (Latest Contact Info) Description 03/17/2025 Results Follow-Up [facility] Family Medicine [address] [place] [address] Sol Moore PA [address] [place], [place] [id number] CBC with auto differential, Comprehensive metabolic panel, Hemoglobin A1c, Additional followed-up results: 4 Social History Tobacco Use Types Packs/Day Years Used Date Smoking Tobacco: Every Day Cigarettes 0.3 25 Smokeless Tobacco: Never Alcohol Use Standard Drinks/Week Comments Yes 0 (1 standard drink = 0.6 oz pur e alcohol) AUDIT-C Answer Date Recorded Q1: How often do you have a drink containing alc ohol? Monthly or less 12/26/2024 Q2: How many drinks containi ng alcohol do you have on a typical day when you are drinking? 1 or 2 12/26/2024 Q3: How often do you have si x or more drinks on one occasion? Never 12/26/2024 PHQ-2 Answer Date Recorded PHQ-2 Total Score (If total score is 3 or more points, staff should administer the PHQ-9) 6 11/23/2024 Personal Safety Answer Date Recorded Have you ever been in or are you currently in a harmful physical or emotional relationship or is someone making you feel afraid or unsafe? Denies 12/26/2024 Comments No Sex and Gender Information Value Date Recorded Sex Assigned at Not on file Legal Sex Female 2:20 AM [employer]IDGE MAIN[employer] Gender Identity Not on file Sexual Orientation Not on file 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 on file Not on file Not on file documented as of this encounter Plan of Treatment Not on file documented as of this encounter Visit Diagnoses Not on filedocumented in this encounter Care Teams Rack Maker Relationship Specialty Start Date End Date Sol Moore PA [address] [id number] PCP - General Internal Medicine 02/02/19 documented as of this encounter
== END 2025-03-23 09:43 | disposition home or self-care (01) ==
PROVIDERS: PCP Physician Assistant; Visit Provider Physician Assistant
DX: N28.89 Other specified disorders of kidney and ureter (principal); R16.0 Hepatomegaly, not elsewhere classified
CPT/HCPCS: 74177; Q9967